=== PATIENT | female | born 1970 | race Caucasian/White ===

== ENCOUNTER 2018-02-25 11:10 | Observation (INO) | payer SELFPAY ==
[2018-02-25 11:55] LABS: #Basophils 0.1 thou/uL (0.0-0.2); #Eosinphils 0.4 thou/uL (0.0-0.7); #Lymphocytes 2.5 thou/uL (1.20-3.40); #Monocytes 0.7 thou/uL (0.11-0.59); #Neutrophils 10.7 thou/uL (1.40-6.50); %Basophils 0.4 % (0.0-1.0); %Lymphocytes 17.6 % (21.0-51.0); %Neutrophils 74.1 % (42.0-75.0); Hemoglobin 15.6 g/dL (12.0-16.0); Mean Corpuscular HGB CONC 32.6 g/dL (32.0-36.0); Mean Corpuscular Hemoglobin 29.5 pg (27.0-31.0); Mean Corpuscular Volume 90.5 fL (78.0-98.0); Mean Platelet Volume 8.9 fL (7.4-10.4); Platelet Count 251 thou/uL (130-400); RBC Distribution Width 12.5 % (11.5-14.5); Red Blood Cell (RBC) Count 5.29 mill/uL (4.20-5.40); White Blood Cell (WBC) Count 14.4 thou/uL (4.8-10.8)
[2018-02-25 12:04] LABS: ALT (SGPT) 8 U/L (8-55); AST (SGOT) 11 U/L (5-34); Albumin 3.7 g/dL (3.5-5.0); Alkaline Phosphatase 93 U/L (40-150); Anion Gap 12 mmol/L (10-20); BUN (Urea Nitrogen) 5 mg/dL (7.0-18.7); Bilirubin, Total 0.5 mg/dL (0.2-1.2); Calc. Creatinine Clearance 0 mL/min (70-130); Carbon Dioxide 20 mmol/L (22-29); Chloride 107 mmol/L (98-107); Estimated GFR-MDRD 63; Globulin 2.9 g/dL (2.4-3.5); Glucose 260 mg/dL (70-105); Potassium 4.2 mmol/L (3.5-5.1); Protein, Total 6.6 g/dL (6.0-8.3); Sodium 135 mmol/L (136-145)
[2018-02-25 12:08] LABS: CKMB 0.8 ng/mL (0-6.6)
[2018-02-25 12:18] LABS: Troponin I Less than 0.010 ng/mL (< 0.028)
[2018-02-25] MEDS ORDERED: predniSONE 20 MG TAB ONE (12:29)
[2018-02-25] MEDS ORDERED: Magnesium 2 GM/50 ML 2 GM in Premix Bag 1 BAG IVPB SCH (12:30)
[2018-02-25] MEDS ORDERED: Albuterol Sulfate 2.5 mg/3 ml Neb ONE (12:33)
--- NOTE | 2018-02-25 12:40 | RAD ---
FRONTAL VIEW CHEST: Date: 02/25/18 INDICATION: Chest pain. Progressive shortness of breath. FINDINGS: Lungs are clear. No effusion or pneumothorax. No free air beneath hemidiaphragms. Cardiac silhouette is normal in size. IMPRESSION: No focal consolidation. POS: H
[2018-02-25] MEDS ORDERED: Doxycycline 100 MG CAP PO SCH (12:45)
[2018-02-25 14:43] LABS: Base Excess-Venous -5.4 mmol/L (0 (+/- 2.5)); Bicarbonate (HCO3v) 19.7 mmol/L (1.0-85.0); CO2 Tension (PvCO2) 36.6 mmHg (41.0-51.0); Calcium, Ionized 1.08 mmol/L (1.12-1.32); Hemoglobin - Calc 14.3 g/dL (12.0-18.0); O2 Tension (PvO2) 49.8 mmHg (35.0-45.0); Potassium 3.7 mmol/L (3.4-4.7); T. Carbon Dioxide 20.9 mmol/L (1.0-85.0); vO2 Saturation-calc 82.8 % (94-98)
--- NOTE | 2018-02-25 15:08 | PDOC.FPRHP ---
- History of Present Illness Chief Complaint: SOB History of Present Illness: Ms. Pinto presents to the ED after increasing SOB for the past few days. She has moved from [facility] in the past 6 months to the area and has had increased rhinorrhea, nasal congestion, coughing and difficulty breathing. She has been unable to afford her maintenance inhaler and has been treating herself with q4hr albuterol nebs. She denies CP, fever/chills, N/V/D, calf tenderness, palpitations or syncope. ED Course: CBC/CMP, Trop, ddimer, CTA, CXR, EKG albuterol [id number], doxycycline, duonebs, prednisone - Allergies/Adverse Reactions Allergies Allergy/AdvReac Type Severity Reaction Status Date / Time Sulfa (Sulfonamide Allergy Verified 02/25/18 12:28 Antibiotics) - Home Medications Medication Instructions Recorded Confirmed Type BuPROPion XL [Wellbutrin XL] 150 mg PO DAILY 02/25/18 02/25/18 History Fluticasone Propionate [Flonase 1 spray EA NARE DAILY 02/25/18 02/25/18 History Allergy Relief] Insulin NPH Hum/Reg Insulin HM 30 unit SQ BID 02/25/18 02/25/18 History [Novolin 70-30 100 Unit/ml Vial] Lisinopril 10 mg PO DAILY 02/25/18 02/25/18 History - History PMHx: Asthma, DMII, HTN, HLD, Fibromyalgia PSHx: Tubal ligation, Cholecystectomy FHx:Mother and grandmother with emphesyma, all smokers Social:former smoker, 30 pk years - Review of Systems General: denies: fever/chills, weight/appetite/sleep changes Eyes: denies: eye pain ENT: reports: nasal congestion, rhinorrhea Respiratory: reports: cough, congestion, shortness of breath Cardiovascular: denies: chest pain, palpitation, edema Gastrointestinal: denies: nausea, vomiting, diarrhea, constipation, abdominal pain Genitourinary: reports: polyuria. denies: incontinence, dysuria Skin: denies: rashes, lesions, jaundice Musculoskeletal: reports: tenderness. denies: pain, stiffness Neurological: denies: numbness, syncope - Vital signs BP: [117/80] HR: [118] RR: [24] Tmax: [98.6] Pox: [95]% on [RA] Wt: [113kg] - Physical Exam Constitutional: NAD, well developed HEENT: normocephalic and atraumatic, grossly normal vision, grossly normal hearing Neck: supple, trachea midline Chest: no-tender to palpation, no lesions Heart: RRR, normal S1/S2, no murmurs/rubs/gallops, pulses present, no edema -Lungs: non-labored breathing, no retractions, wheezing present througout, poor air movement Abdomen: soft, non-tender, no masses/distention Musculoskeletal: normal structure, ROM grossly normal Neurological: no focal deficit, normal sensation Skin: no rash/lesions, good turgor Heme/Lymphatic: no unusual bruising or bleeding, no purpura, no petechia Psychiatric: normal mood and affect FMR H&P: Results - Labs Result Diagrams: 02/25/18 11:31 02/25/18 11:31 Lab results: WBC 14.4 thou/uL (4.8-10.8) H 02/25/18 11:31 Hgb 15.6 g/dL (12.0-16.0) 02/25/18 11:31 Hct 47.9 % (36.0-47.0) H 02/25/18 11:31 MCV 90.5 fL (78.0-98.0) 02/25/18 11:31 Plt Count 251 thou/uL (130-400) 02/25/18 11:31 Neutrophils % 74.1 % (42.0-75.0) 02/25/18 11:31 VBG pCO2 36.6 mmHg (41.0-51.0) L 02/25/18 14:37 VBG pO2 49.8 mmHg (35.0-45.0) H 02/25/18 14:37 Sodium 135 mmol/L (136-145) L 02/25/18 11:31 Potassium 4.2 mmol/L (3.5-5.1) 02/25/18 11:31 Chloride 107 mmol/L (98-107) 02/25/18 11:31 Carbon Dioxide 20 mmol/L (22-29) L 02/25/18 11:31 BUN 5 mg/dL (7.0-18.7) L 02/25/18 11:31 Creatinine 0.96 mg/dL (0.6-1.1) 02/25/18 11:31 Glucose 260 mg/dL (70-105) H 02/25/18 11:31 Calcium 9.0 mg/dL (7.8-10.44) 02/25/18 11:31 Total Bilirubin 0.5 mg/dL (0.2-1.2) 02/25/18 11:31 AST 11 U/L (5-34) 02/25/18 11:31 ALT 8 U/L (8-55) 02/25/18 11:31 Alkaline Phosphatase 93 U/L (40-150) 02/25/18 11:31 CK-MB (CK-2) 0.8 ng/mL (0-6.6) 02/25/18 11:31 Serum Total Protein 6.6 g/dL (6.0-8.3) 02/25/18 11:31 Albumin 3.7 g/dL (3.5-5.0) 02/25/18 11:31 FMR H&P: A/P - Problem List (1) Asthma exacerbation with COPD (chronic obstructive pulmonary disease) Current Visit: Yes Status: Acute Code(s): J44.1 - CHRONIC OBSTRUCTIVE PULMONARY DISEASE W (ACUTE) EXACERBATION; J45.901 - UNSPECIFIED ASTHMA WITH ( ACUTE) EXACERBATION (2) Tachycardia Current Visit: Yes Status: Acute Code(s): R00.0 - TACHYCARDIA, UNSPECIFIED (3) Leukocytosis Current Visit: Yes Status: Acute Code(s): D72.829 - ELEVATED WHITE BLOOD CELL COUNT, UNSPECIFIED (4) Diabetes mellitus type 2 in obese Current Visit: Yes Status: Acute Code(s): E11.69 - TYPE 2 DIABETES MELLITUS WITH OTHER SPECIFIED COMPLICATION; E66.9 - OBESITY, UNSPECIFIED (5) HTN (hypertension) Current Visit: Yes Status: Acute Code(s): I10 - ESSENTIAL (PRIMARY) HYPERTENSION (6) HLD (hyperlipidemia) Current Visit: Yes Status: Acute Code(s): E78.5 - HYPERLIPIDEMIA, UNSPECIFIED - Plan Asthma exacerbation with COPD - history of diagnosed asthma, consider COPD as possible diagnosis with smoking history - Duonebs q4hr, albuterol q2hr, prednisone 40mg qd, Doxycycline, O2 prn - monitor respiratory and vitals on medical floor Tachycardia - likely 2/2 increased O2 demand - CTA neg for PE Leukocytosis - possibly 2/2 atypical pna - Doxycycline to cover - order procal, AM CBC DMII - lantus 10 qam - mild SSI HTN -continue home meds HLD -continue home meds Code: FULL ppx: lovenox Disposition/LOS: treat for COPD exacerbation, monitor overnight, possible DC tomorrow FMR H&P: Upper Level - Pertinent history 47 y/o F with hx/o smoking & asthma presents for SOB/Wheezing for several weeks that has continued to worsen. Associated cough, wheezing, SOB, chest tightness. Does not complain of exertional chest pain, dysuria, abdominal pain, bowel changes. S/p 10mg of albuterol nebs in ED with improved respiratory distress, but continued wheezing. She is on RA, at 96% O2 and feels better than when she presented. Also given Prednisone, Doxycline, Magnesuim in ED. - Plan Date/Time: 02/25/18 [id number] I, Alf Dunbar, have evaluated this patient and agree with findings/plan as outlined by development intern resident. Pertinent changes/additions are listed here. 1. Acute Asthma Exacerbation - Pt has long history of smoking as well and likely a component of obstructive disease as well. Will continue scheduled and PRN nebs, continue Prednisone, and O2 as need to maintain sats >92%. Consider Singulair as she recently moved to the area and this worsened her asthma. 2. Possible Atypical PNA - Seen on CTA. Will continue Doxycycline and monitor for signs of infection and her respiratory status. 3. Leukocytosis: Possibly related to #2, but could be reactive as well. Will trend and order procal. 4. DM2: On 35u 70/30u insulin daily. Will give 10u Lantus BID with SSI and continue to monitor. 5. Depression: On Wellbutrin. Stable. 6. HTN: Resume home Lisinopril Attending Addendum - Attending Addendum Date/Time: 02/25/181919 I personally evaluated the patient and discussed the management with Dr. Wallace. I agree with the History, Examination, Assessment and Plan documented above with any addition or exceptions noted below. I suspect after 40 years of smoking an underlying COPD component. We are essentailly traing her for COPD exascerbation, asthma exascerbation, and Right middle lobe pneumonia.
[2018-02-25] MEDS ORDERED: ISOVUE-370 76%-LOCM 1 ML ONE (15:12)
--- NOTE | 2018-02-25 15:16 | CT ---
CTA CHEST WITH CONTRAST WITH 3D VOLUME RENDERING: Date: 02/25/18 INDICATION: Chest pain with elevated D-Dimer. FINDINGS: There is no large, central filling defect of pulmonary trunk or main pulmonary arteries. There is a g eneralized diminished density of the contrast bolus, which does limit sensitivity for detection of PE and does preclude evaluation at the segmental and subsegmental pulmonary trunk branch levels. There is ground-glass multifocal opacification of the pulmonary parenchyma bilaterally, more notable on the left. No effusion or pneumothorax. There are borderline size thoracic lymph nodes, of indeterminate etiology. No acute pathology is seen within the imaged upper abdomen. The regional skeletal structure s are intact. IMPRESSION: 1. No definite large central pulmonary embolus, within limitations. 2. Multifocal abnormal ground-glass opacities bilaterally. This could be on the basis of an atypical infectious/inflammatory process. Alternatively, edema or alveolar hemorrhage are additional consider ations. Recommend clinical correlation. Radiographic imaging follow-up may also prove useful as indic ated. POS: ILYA
[2018-02-25 15:57] LABS: Troponin I Less than 0.010 ng/mL (< 0.028)
[2018-02-25] MEDS ORDERED: Acetaminophen 325 MG TAB PO PRN ×2 (16:27→16:45)
[2018-02-25] MEDS ORDERED: Dextrose 5% in Water 1,000 ML IV PRN (16:45)
[2018-02-25] MEDS ORDERED: Albuterol Sulfate 2.5 mg/3 ml Neb NEB PRN (16:45)
[2018-02-25] MEDS ORDERED: Dextrose 50% Abboject 50 ML SYRINGE SLOW IVP PRN (16:45)
[2018-02-25 16:59] VITALS: BMI 43.0
[2018-02-25] MEDS: HumaLOG 300 UNITS/3 ML VIAL SC PRN (17:37)
[2018-02-25] MEDS: Doxycycline 100 MG CAP PO SCH (20:01)
[2018-02-25] MEDS: Insulin NPH/Reg Insulin Hm 300 UNITS/3 ML VIAL SC SCH (21:42)
[2018-02-25] MEDS: Melatonin 3 MG TAB PO PRN (21:43)
[2018-02-26] MEDS: HumaLOG 300 UNITS/3 ML VIAL SC PRN ×4 (01:59→21:11)
[2018-02-26 02:11] LABS: #Lymphocytes 1.4 thou/uL (1.20-3.40); #Monocytes 0.8 thou/uL (0.11-0.59); #Neutrophils 12.1 thou/uL (1.40-6.50); %Basophils 0.1 % (0.0-1.0); %Eosinophils 0.3 % (0.0-10.0); %Lymphocytes 9.7 % (21.0-51.0); %Monocytes 5.3 % (0.0-10.0); %Neutrophils 84.7 % (42.0-75.0); Hemoglobin 13.7 g/dL (12.0-16.0); Mean Corpuscular HGB CONC 33.8 g/dL (32.0-36.0); Mean Corpuscular Hemoglobin 30.7 pg (27.0-31.0); Mean Platelet Volume 8.6 fL (7.4-10.4); Platelet Count 243 thou/uL (130-400); RBC Distribution Width 12.4 % (11.5-14.5); Red Blood Cell (RBC) Count 4.47 mill/uL (4.20-5.40); White Blood Cell (WBC) Count 14.3 thou/uL (4.8-10.8)
[2018-02-26 02:27] LABS: Anion Gap 10 mmol/L (10-20); BUN (Urea Nitrogen) 13 mg/dL (7.0-18.7); Calc. Creatinine Clearance 124 mL/min (70-130); Calcium 8.5 mg/dL (7.8-10.44); Carbon Dioxide 21 mmol/L (22-29); Chloride 106 mmol/L (98-107); Estimated GFR-MDRD 57; Glucose 321 mg/dL (70-105); Potassium 4.4 mmol/L (3.5-5.1); Sodium 133 mmol/L (136-145)
[2018-02-26] MEDS ORDERED: guaiFENesin ER 600 MG TAB PO SCH (05:45)
--- NOTE | 2018-02-26 07:54 | PDOC.FM ---
- Subjective Subjective: Pt c/o congestion overnight and given Mucinex. States she feel better, but is still wheezing. Is getting Duo-nebs treatments. - Objective Vital Signs & Weight: Vital Signs (12 hours) Temp Pulse Resp BP BP Pulse Ox 02/26/18 06:56 121 H 20 99 02/26/18 05:21 20 02/26/18 04:53 97.0 F L 122 H 26 H 133/93 H 93 L 02/26/18 01:53 98.6 F 106 H 18 115/72 93 L 02/25/18 21:28 105 H 18 95 Weight Weight 114.532 kg I&O: 02/25/18 02/26/18 02/27/18 06:59 06:59 06:59 Intake Total 1250 Output Total 1200 400 Balance 50 -400 Result Diagrams: 02/26/18 02:05 02/26/18 02:05 <Alf Dunbar - Last Filed: 02/26/18 09:48> - Objective Vital Signs & Weight: Vital Signs (12 hours) Temp Pulse Resp BP BP Pulse Ox 02/26/18 10:15 94 16 95 02/26/18 07:45 97.9 F 111 H 20 132/72 95 02/26/18 06:56 121 H 20 99 02/26/18 05:21 20 02/26/18 04:53 97.0 F L 122 H 26 H 133/93 H 93 L 02/26/18 01:53 98.6 F 106 H 18 115/72 93 L Weight Weight 114.532 kg I&O: 02/25/18 02/26/18 02/27/18 06:59 06:59 06:59 Intake Total 1250 Output Total 1200 400 Balance 50 -400 Result Diagrams: 02/26/18 02:05 02/26/18 02:05 <Priscila Bender - Last Filed: 02/26/18 10:30> Phys Exam - Physical Examination HEENT: PERRLA, moist MMs, sclera anicteric Neck: no nodes, no JVD Respiratory: no rales, no rhonchi diffuse exp wheezing b/l, Cardiovascular: RRR, no significant murmur, no rub Gastrointestinal: soft, non-tender, no distention obese Musculoskeletal: no edema Neurological: non-focal, normal sensation Lymphatic: no nodes Psychiatric: normal affect, A&O x 3 Skin: no rash, normal turgor, cap refill <2 seconds <Alf Dunbar - Last Filed: 02/26/18 09:48> Dx/Plan (1) Asthma exacerbation with COPD (chronic obstructive pulmonary disease) Code(s): J44.1 - CHRONIC OBSTRUCTIVE PULMONARY DISEASE W (ACUTE) EXACERBATION; J45.901 - UNSPECIFIED ASTHMA WITH (ACUTE) EXACERBATION Status: Acute (2) Diabetes mellitus type 2 in obese Code(s): E11.69 - TYPE 2 DIABETES MELLITUS WITH OTHER SPECIFIED COMPLICATION; E66.9 - OBESITY, UNSPECIFIED Status: Acute (3) HLD (hyperlipidemia) Code(s): E78.5 - HYPERLIPIDEMIA, UNSPECIFIED Status: Acute (4) HTN (hypertension) Code(s): I10 - ESSENTIAL (PRIMARY) HYPERTENSION Status: Acute (5) Leukocytosis Code(s): D72.829 - ELEVATED WHITE BLOOD CELL COUNT, UNSPECIFIED Status: Acute (6) Tachycardia Code(s): R00.0 - TACHYCARDIA, UNSPECIFIED Status: Acute - Plan Plan: 1. Acute Asthma Exacerbation - On PRN nebs, Prednisone, and not requiring O2 support overnight. 2. Possible Atypical PNA - Seen on CTA. Will continue Doxycycline and monitor for signs of infection and her respiratory status. 3. Leukocytosis: Possibly related to #2, but could be reactive as well. Will trend and order procal. 4. DM2: Resume 35u 70/30u insulin daily with SSI and monitor BG 5. Depression: On Wellbutrin. Stable. 6. HTN: Resume home Lisinopril DISPO: anticipate dischrage tomorrow DVT ppx: Lovenox <Alf Dunbar - Last Filed: 02/26/18 09:48> Attending Addendum - Attending Addendum Date/Time: 02/26/18 1018 I personally evaluated the patient and discussed the management with Dr. Dunbar I agree with the History, Examination, Assessment and Plan documented above with any addition or exceptions noted below- Patinet feeling; still have some wheezng. Continue nebs, prednisone. 2) DM- home meds restarted; continue to monitor accuchecks. <Priscila Bender - Last Filed: 02/26/18 10:30>
[2018-02-26] MEDS: Fluticasone Propionate Nasal Spray 16 gm Bottle NASAL SCH ×2 (08:39→22:47)
[2018-02-26] MEDS: predniSONE 20 MG TAB PO SCH (08:40)
[2018-02-26] MEDS: Lisinopril 10 MG TAB PO SCH (08:40)
[2018-02-26] MEDS: Enoxaparin Sodium 30 MG/0.3 ML SYRINGE SC SCH (08:40)
[2018-02-26] MEDS: Bupropion 150 MG XL TAB PO SCH (08:40)
[2018-02-26] MEDS: Doxycycline 100 MG CAP PO SCH ×2 (08:41→21:06)
[2018-02-26] MEDS: Insulin NPH/Reg Insulin Hm 300 UNITS/3 ML VIAL SC SCH ×2 (08:41→21:12)
[2018-02-26] MEDS ORDERED: Insulin Glargine 10 UNITS in Pre-Filled Syringe 1 EACH SC SCH (09:00)
[2018-02-26] MEDS: guaiFENesin ER 600 MG TAB PO SCH (21:06)
[2018-02-26] MEDS ORDERED: Magnesium 2 GM/50 ML 2 GM in Premix Bag 1 BAG IVPB SCH (22:30)
[2018-02-26] MEDS: Melatonin 3 MG TAB PO PRN (22:47)
[2018-02-27] MEDS: HumaLOG 300 UNITS/3 ML VIAL SC PRN (05:30)
--- NOTE | 2018-02-27 05:57 | PDOC.FM ---
- Subjective Subjective: Pt doing well. Respiratory status much improved. - Objective Vital Signs & Weight: Vital Signs (12 hours) Temp Pulse Resp BP Pulse Ox 02/27/18 03:45 98.6 F 90 18 119/59 L 96 02/27/18 02:46 100 18 98 02/26/18 21:34 105 H 18 92 L 02/26/18 20:04 97.8 F 103 H 14 129/62 96 02/26/18 18:29 102 H 18 97 Weight Weight 114.532 kg I&O: 02/25/18 02/26/18 02/27/18 06:59 06:59 06:59 Intake Total 1250 960 Output Total 1200 400 Balance 50 560 Result Diagrams: 02/26/18 02:05 02/26/18 02:05 Phys Exam - Physical Examination Constitutional: NAD HEENT: PERRLA, moist MMs, sclera anicteric Neck: no nodes, no JVD, supple Respiratory: no rales, no rhonchi, wheezing present Cardiovascular: RRR, no significant murmur Gastrointestinal: soft, non-tender, no distention obese Musculoskeletal: no edema, pulses present Neurological: non-focal, normal sensation Psychiatric: normal affect, A&O x 3 Skin: no rash, normal turgor Dx/Plan (1) Asthma exacerbation with COPD (chronic obstructive pulmonary disease) Code(s): J44.1 - CHRONIC OBSTRUCTIVE PULMONARY DISEASE W (ACUTE) EXACERBATION; J45.901 - UNSPECIFIED ASTHMA WITH (ACUTE) EXACERBATION Status: Acute (2) Diabetes mellitus type 2 in obese Code(s): E11.69 - TYPE 2 DIABETES MELLITUS WITH OTHER SPECIFIED COMPLICATION; E66.9 - OBESITY, UNSPECIFIED Status: Acute (3) HLD (hyperlipidemia) Code(s): E78.5 - HYPERLIPIDEMIA, UNSPECIFIED Status: Acute (4) HTN (hypertension) Code(s): I10 - ESSENTIAL (PRIMARY) HYPERTENSION Status: Acute (5) Leukocytosis Code(s): D72.829 - ELEVATED WHITE BLOOD CELL COUNT, UNSPECIFIED Status: Acute (6) Tachycardia Code(s): R00.0 - TACHYCARDIA, UNSPECIFIED Status: Resolved - Plan Plan: 1. Acute Asthma Exacerbation - On PRN nebs, Prednisone, and Spireva. >95% on RA. Much improved 2. Possible Atypical PNA - Seen on CTA. Will continue Doxycycline outpatient 3. Leukocytosis: stable. Possibly related to #2, liklely reactive. Procal negative 4. DM2: BG have been elevated. On 35u 70/30u insulin daily with SSI and monitor BG 5. Depression: On Wellbutrin. Stable. 6. HTN: Resume home Lisinopril DISPO: anticipate d/c today.
[2018-02-27] MEDS ORDERED: Mometasone/Formoterol 120 PUFF INHALER INH SCH ×2 (06:30)
[2018-02-27] MEDS ORDERED: Insulin NPH/Reg Insulin Hm 300 UNITS/3 ML VIAL SC SCH (08:00)
[2018-02-27] MEDS: Bupropion 150 MG XL TAB PO SCH (08:54)
[2018-02-27] MEDS: Doxycycline 100 MG CAP PO SCH (08:54)
[2018-02-27] MEDS: Fluticasone Propionate Nasal Spray 16 gm Bottle NASAL SCH (08:54)
[2018-02-27] MEDS: Lisinopril 10 MG TAB PO SCH (08:55)
[2018-02-27] MEDS: predniSONE 20 MG TAB PO SCH (08:55)
[2018-02-27] MEDS: guaiFENesin ER 600 MG TAB PO SCH (08:55)
[2018-02-27] MEDS: Enoxaparin Sodium 30 MG/0.3 ML SYRINGE SC SCH (08:55)
[2018-02-27 12:23] VITALS: BP 102/53; TEMP 98.2
--- NOTE | 2018-02-27 14:39 | ADD-PRG ---
DATE OF SERVICE: 02/27/2018 This is an addendum to the note of Dr. Alf Dunbar. SUBJECTIVE: Ms. Pinto is a pleasant 47-year-old obese white female who was admitted with some mild re spiratory distress. She has had asthma since the age of 6 and until recently was a heavy smoker with approximately 25-30 pack year history. 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 In the event, she feels much better this morning. She really likely needs to be on a long-acting muscarinic, an in haled corticosteroid and a long-acting beta agonist as well as her rescue inhaler and/or nebulizer wi th albuterol. We are asking case management to help us out paying for these. Otherwise, she is read y for discharge.
--- NOTE | 2018-02-28 19:10 | DIS-2 ---
DATE OF ADMISSION: 02/25/2018 DATE OF DISCHARGE: 02/27/2018 RESIDENT: Alf Dunbar DO ADMITTING ATTENDING: Dr. Priscila Bender DISCHARGE ATTENDING: Dr. Matt Gómez MD. CONSULTATIONS: None. PROCEDURES: None. PRIMARY DIAGNOSIS: Acute asthma exacerbation. SECONDARY DIAGNOSES: 1. Chronic obstructive pulmonary disease. 2. Diabetes type 2. 3. Obesity. DISCHARGE MEDICATIONS: ProAir inhaler 2 puffs q.4 hours as needed, lisinopril 10 mg 1 tab p.o. daily , Wellbutrin 150 mg p.o. daily, insulin 70/30 NPH 35 units subcu b.i.d., prednisone 40 mg for 4 days and albuterol 2.5 mg nebulizer q.4 h. as needed. DISCONTINUED MEDICATIONS: None. HOSPITAL COURSE: A 47-year-old female admitted for an acute asthma/COPD exacerbation. She was treat ed with steroids which will be continued outpatient. She was also given nebulizers, which will also be continued outpatient. Her blood glucoses were controlled. Of note, she does not have insurance a nd cannot afford outpatient inhalers, so we did prescribe a ProAir and set her up with a medication a ssistance program to where she could at least have a rescue inhaler. She would benefit from addition al LABA or inhaled corticosteroid as well. Her respiratory status did improve with these medications . DISPOSITION: Stable. DISCHARGE INSTRUCTIONS: 1. Location: Home. 2. Diet: Regular. 3. Activity: As tolerated. 4. Followup: At [facility] within 1 week.
== END 2018-02-27 17:04 | disposition home or self-care (01) ==
LOC: ERS 11:10 → 2SW 16:40
PROVIDERS: ADMIT Family Medicine; ATTEND Family Medicine
DX: J44.1 Chronic obstructive pulmonary disease with (acute) exacerbation (principal); J45.901 Unspecified asthma with (acute) exacerbation; E11.9 Type 2 diabetes mellitus without complications; E78.5 Hyperlipidemia, unspecified; M79.7 Fibromyalgia; F32.9 Major depressive disorder, single episode, unspecified; D72.829 Elevated white blood cell count, unspecified; E66.9 Obesity, unspecified; Z68.41 Body mass index [BMI] 40.0-44.9, adult; Z87.891 Personal history of nicotine dependence; Z79.4 Long term (current) use of insulin; Z79.899 Other long term (current) drug therapy; Z88.2 Allergy status to sulfonamides
CPT/HCPCS: 36415; 36416; 71045; 71275; 80048; 80053; 82330; 82553; 82803; 84145; 84484; 85025; 85379; 90471; 90686; 90732; 93005; 94640; 94644; 96365; 96367; 96372; G0008; G0009; G0378; J1650; J7506; J7611; J7620

== ENCOUNTER 2018-10-10 23:47 | Inpatient (IN) | payer SELFPAY ==
[2018-10-11] MEDS ORDERED: Lorazepam 2 MG/ML VIAL ONE ×2 (00:08→00:26)
[2018-10-11] MEDS ORDERED: methylPREDNISolone Sod Succ/PF 125 MG/2 ML VIAL ONE (00:08)
[2018-10-11] MEDS ORDERED: Metoclopramide HCl 10 MG/2 ML VIAL ONE (00:26)
[2018-10-11 00:29] LABS: #Basophils 0.1 thou/uL (0.0-0.2); #Eosinphils 0.1 thou/uL (0.0-0.7); #Monocytes 0.5 thou/uL (0.11-0.59); #Neutrophils 10.1 thou/uL (1.40-6.50); %Basophils 0.7 % (0.0-1.0); %Eosinophils 0.4 % (0.0-10.0); %Lymphocytes 31.5 % (21.0-51.0); %Monocytes 3.4 % (0.0-10.0); %Neutrophils 63.9 % (42.0-75.0); Hemoglobin 15.9 g/dL (12.0-16.0); Mean Corpuscular HGB CONC 33.4 g/dL (32.0-36.0); Mean Corpuscular Hemoglobin 30.3 pg (27.0-31.0); Mean Corpuscular Volume 90.8 fL (78.0-98.0); Mean Platelet Volume 9.2 fL (7.4-10.4); Platelet Count 364 thou/uL (130-400); RBC Distribution Width 12.6 % (11.5-14.5); Red Blood Cell (RBC) Count 5.25 mill/uL (4.20-5.40); White Blood Cell (WBC) Count 15.8 thou/uL (4.8-10.8)
[2018-10-11 00:39] LABS: BHCG - Serum Negative (NEGATIVE); Pregs Control Background? CLEAR/WHITE (CLR/WHITE); Pregs Control Bar Appear? YES (CONTROL BAR)
[2018-10-11 00:48] LABS: ALT (SGPT) 12 U/L (8-55); AST (SGOT) 11 U/L (5-34); Albumin 3.4 g/dL (3.5-5.0); Alkaline Phosphatase 107 U/L (40-150); Anion Gap 16 mmol/L (10-20); BUN (Urea Nitrogen) 12 mg/dL (7.0-18.7); Bilirubin, Total 0.3 mg/dL (0.2-1.2); Calc. Creatinine Clearance 0 mL/min (70-130); Calcium 9.1 mg/dL (7.8-10.44); Carbon Dioxide 20 mmol/L (22-29); Chloride 103 mmol/L (98-107); Estimated GFR-MDRD 47; Globulin 2.8 g/dL (2.4-3.5); Glucose 513 mg/dL (70-105); Potassium 3.7 mmol/L (3.5-5.1); Protein, Total 6.2 g/dL (6.0-8.3); Sodium 135 mmol/L (136-145)
[2018-10-11] MEDS ORDERED: Morphine 4 MG/ML VIAL ONE (03:18)
[2018-10-11] MEDS ORDERED: Ondansetron PF 4 MG/2 ML Vial ONE (03:18)
[2018-10-11] MEDS ORDERED: Enoxaparin Sodium 60 MG/0.6 ML SYRINGE ONE (03:50)
[2018-10-11] MEDS ORDERED: Acetaminophen 325 MG TAB PO PRN (04:54)
[2018-10-11] MEDS ORDERED: Ondansetron PF 4 MG/2 ML Vial IVP PRN (04:54)
[2018-10-11] MEDS ORDERED: Dextrose 50% Abboject 50 ML SYRINGE SLOW IVP PRN (04:56)
[2018-10-11] MEDS ORDERED: Dextrose 5% in Water 1,000 ML IV PRN (04:56)
[2018-10-11] MEDS ORDERED: Insulin Regular 300 UNITS/3 ML VIAL ONE ×2 (04:57→04:59)
[2018-10-11] MEDS ORDERED: Morphine 2 MG/ML SYRINGE ONE (04:57)
--- NOTE | 2018-10-11 05:53 | HP ---
PRIMARY CARE DOCTOR: The patient goes to [facility]. CODE STATUS: Full code. TIME OF EVALUATION: 4:35 a.m. CHIEF COMPLAINT: Abdominal pain and shortness of breath. HISTORY OF PRESENT ILLNESS: This is a 47-year-old female patient with past medical history of morbidly obese, diabetes, hyperlipidemia, hypertension, asthma, also family history of thromboembolic disorder. The patient came to the hospital after having a severe abdominal pain associated with shortness of breath, associated with diaphoresis. The patient was sleeping and all of the sudden started with the severe pain. The patient is a diabetic, has not been taking any insulin. She cannot associate the event with any other problems. Symptoms are severe. CT angio was done. The patient was shown to have multiple emboli in the infrarenal aortic area and also having spleen and renal infarctions. It seems that the source for the thrombus is the heart. The patient has been started on full anticoagulation. REVIEW OF SYSTEMS: CONSTITUTIONAL: No fever or chills. The patient reported generalized weakness. RESPIRATORY: No cough. The patient had shortness of breath. No sputum production. CARDIOVASCULAR: No chest pain or palpitation. GASTROINTESTINAL: The patient has had nausea and vomiting. No diarrhea or abdominal pain. 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 GENITOURINARY: No burning on urination. EXTREMITIES: No leg swelling. All other systems were reviewed and negative except for the findings mentioned above. PAST MEDICAL HISTORY: As mentioned in the HPI. FAMILY HISTORY: Reviewed and non contributory to current presentation SURGICAL HISTORY: Tubal ligation, cholecystectomy. PSYCHIATRIC HISTORY: Depression, anxiety. No history of suicidal or homicidal ideation. SOCIAL HISTORY: The patient abuses marijuana, smokes cigarettes half a pack per day. KNOWN ALLERGIES: Sulfa. REPORTED MEDICATIONS: 1. Lisinopril. 2. Humulin 70/30. 3. Symbicort. PHYSICAL EXAMINATION: VITAL SIGNS: On presentation, blood pressure 103/87 with heart rate 123, respiratory rate was 16, temperature 97.6, pain was 10/10, and 97% on non-rebreather. GENERAL APPEARANCE: The patient is alert, oriented, not in acute distress. HEENT: Eyes; normal conjunctivae. Moist oral mucosa. Anicteric. No JVD. RESPIRATORY: Bilateral air entry. No rales. No wheezes. Symmetric expansion. CARDIOVASCULAR: The patient is tachycardic. Regular rhythm. No murmurs. No gallop. No edema. ABDOMEN: Soft. Normal bowel sounds. MUSCULOSKELETAL: Baseline range of motion and strength. SKIN: Warm, intact. No pallor. No rash. No redness. Peripheral pulses are present. Capillary refill seems to intact. NEURO: No evidence of any new focal weakness. Cranial nerves seems to be intact. PSYCH: The patient is in good mood. No anxiety. Optimal judgment. DIAGNOSTIC DATA: EKG was reviewed. The patient has sinus tachycardia at the rate of 125 with TX 150, QRS 78, and QT corrected 450. The CT abdomen and pelvis was reviewed. 1. The patient has infarction involving approximately 30% of the spleen and small peripheral infarcts in the kidneys, hypodensity throughout the infrarenal abdominal aorta, most consistent with thromboemboli. Source of emboli not identified on the CT from the heart. This report contains findings that may be critical to the patient's care. 2. Questionable bowel wall thickening in the right lower quadrant. Recommend close followup. Possible early infarction given findings of thromboembolic disease. LABORATORY DATA: Labs were reviewed. The patient has white count of 15.8, MCV 90, hemoglobin 15.9, platelet count 364. Chemistry; sodium 135, potassium 3.7, chloride 103, carbon dioxide 20, anion gap 16, BUN 12, creatinine 1.24, GFR 47, glucose 513, calcium 9.1. Total bilirubin 0.3, AST 11, ALT 12, alkaline phosphatase 107. Troponin was negative. Beta-natriuretic peptide 15.3, albumin 3.4. ASSESSMENT AND PLAN: The patient will be placed in the hospital with following medical problems. 1. 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 The patient has been started on Lovenox that we will continue for now. She may need to be on chronic anticoagulation, specifically having the history of the mother having the clot disorder. We will treat abdominal pain symptomatically. 2. Uncontrolled diabetes with blood sugar of 113. The patient has been started on sliding scale for optimal control. We will reconcile home medications. Low- carb diet is advised. 3. Hyponatremia, sodium 135, this is minimal. No need for any acute intervention at this point. We will monitor sodium level. 4. Morbid obesity. Advised to lose weight. 5. Leukocytosis. No source for infection. This may be due to acute distress, need to be monitored and treated accordingly. 6. Hyperlipidemia. Low-cholesterol diet is advised. Control diabetes. 7. Controlled hypertension. Reconcile home medications. We will monitor. Job ID: [id number] [id number]
[2018-10-11 06:46] LABS: Glucose Accucheck Confirmation 620 mg/dl (70-105)
[2018-10-11] MEDS ORDERED: HumaLOG 300 UNITS/3 ML VIAL SC SCH (07:15)
--- NOTE | 2018-10-11 07:44 | CT ---
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 EMS reports PT was having SOB, became red and diaphoretic, and had an overwhelming sense of doom. PT reports abd pain associated w/ nausea. EMS states PT took a zyrtec when sx's started. PT admits to smoking marijuana tonight. Dstick en route to ED was 500, PT states she has been out of insulin x3 weeks. TECHNIQUE: Imaging protocol: Axial computed tomography images of the abdomen and pelvis with intravenous contrast. Coronal reformatted images were created and reviewed. COMPARISON: No relevant prior studies available. FINDINGS: Lungs: No consolidations in the lung bases. ABDOMEN: Liver: No mass. Gallbladder and bile ducts: Surgical changes of cholecystectomy. No ductal dilation. Pancreas: No mass or ductal dilation. Spleen: Wedge-shaped hypodensity in the spleen covering approximately one third. Adrenals: No mass. Kidneys and ureters: Several small wedge-shaped cortical hypodensities of the left kidney. Stomach and bowel: Possible wall thickening of a loop of small bowel in the right lower quadrant. No bowel obstruction. Appendix: No evidence of appendicitis. PELVIS: Bladder: Normal. Reproductive: Normal. ABDOMEN and PELVIS: Intraperitoneal space: Small amount of free fluid in the pelvis. Bones/joints: No suspicious bone lesions. Soft tissues: Large fat containing umbilical hernia. Vasculature: Hypodensities in the infrarenal abdominal aorta suspicious for thromboembolic disease. Lymph nodes: No lymphadenopathy. IMPRESSION: 1. Infarction involving approximately 30% of the spleen and small peripheral infarcts of the left kid chicho. Hypodensities throughout the infrarenal abdominal aorta most consistent with thromboemboli. Source of emboli not identified on this CT, though commonly from the heart. THIS REPORT CONTAINS FINDINGS THAT MAY BE CRITICAL TO PATIENT CARE. Above findings were verbally communicated via telephone conference with Dr. Ba at 3:09 AM CDT on 10/11/2018. The findings were acknowledged and understood. 2. Questionable bowel wall thickening in the right lower quadrant. Recommend close followup for possible early infarction given findings of thromboembolic disease. Thank you for allowing us to participate in the care of your patient. Dictated and Authenticated by: Lynn Laboy MD 10/11/2018 3:19 AM Central Time ([place] & [place]) FINAL REPORT EMERGENCY AFTER HOURS CT ABDOMEN AND PELVIS WITH IV CONTRAST: FINDINGS/IMPRESSION: I agree with report by Dr. Lynn Laboy of [facility]. Transcribed Date/Time: 10/11/2018 8:16 AM
--- NOTE | 2018-10-11 08:30 | RAD ---
SINGLE VIEW OF THE CHEST: COMPARISON: 02/25/2018. HISTORY: Shortness of breath and dyspnea. FINDINGS: Single view of the chest shows a normal sized cardiomediastinal silhouette. There is no evidence of c onsolidation, mass, or pleural effusion. The bones are unremarkable. IMPRESSION: No evidence of acute cardiopulmonary disease. POS: [facility]
[2018-10-11] MEDS: HumaLOG 300 UNITS/3 ML VIAL SC PRN ×3 (09:36→19:03)
[2018-10-11] MEDS ORDERED: ISOVUE-370 76%-LOCM 1 ML ONE (11:20)
[2018-10-11] MEDS: Acetaminophen/Codeine 30-300mg Tablet PO SCH ×2 (13:27→18:36)
[2018-10-11] MEDS: Ondansetron ODT 4 MG TAB PO PRN (13:29)
--- NOTE | 2018-10-11 13:57 | ULT ---
EXAM: Right lower extremity venous Doppler US HISTORY: Right lower extremity edema and pain FINDINGS: Grayscale, color-flow, Doppler evaluation, spectral analysis of the right lower extremity venous stru ctures is performed with 2-D imaging. The left common femoral, superficial femoral, popliteal, posterior tibial, proximal greater saphenous and profunda femoral veins are imaged. There is normal luminal compressibility, flow, and augmentation the visualized deep venous structures of the right lower extremity. IMPRESSION: No evidence of a deep vein thrombosis in the right lower extremity.
[2018-10-11] MEDS: traMADol HCl 50 MG TAB PO PRN ×2 (15:26→20:52)
[2018-10-11] MEDS: Enoxaparin Sodium 120 MG/0.8 ML SYRINGE SC SCH (15:27)
[2018-10-11] MEDS ORDERED: HumaLOG 300 UNITS/3 ML VIAL SC PRN (17:59)
[2018-10-11] MEDS ORDERED: PROVENTIL INHALER 6.7 G (200 INHALATIONS) INH PRN (18:00)
[2018-10-11] MEDS: Budesonide 0.25 MG/2 ML NEB NEB SCH (18:41)
--- NOTE | 2018-10-11 20:43 | RAD ---
RIGHT FOOT: 10/11/18 Three views. HISTORY: Foot pain. Enthesophytes from the plantar calcaneus. Tarsals unremarkable. Metatarsals and phalanges unremarkabl e. MTP and IP joints unremarkable. IMPRESSION: Small plantar enthesophyte. Right foot otherwise unremarkable. POS: [facility]
[2018-10-11] MEDS: HumuLIN 70/30 (300 UNITS/3 ML VIAL) SC SCH (20:50)
[2018-10-12] MEDS: Acetaminophen/Codeine 30-300mg Tablet PO SCH ×4 (00:29→17:57)
[2018-10-12] MEDS: Enoxaparin Sodium 120 MG/0.8 ML SYRINGE SC SCH ×2 (03:42→15:17)
[2018-10-12 05:08] LABS: #Basophils 0.1 thou/uL (0.0-0.2); #Eosinphils 0.1 thou/uL (0.0-0.7); #Lymphocytes 2.3 thou/uL (1.20-3.40); #Monocytes 1.1 thou/uL (0.11-0.59); %Basophils 0.5 % (0.0-1.0); %Eosinophils 0.7 % (0.0-10.0); %Lymphocytes 12.2 % (21.0-51.0); %Neutrophils 80.7 % (42.0-75.0); Hemoglobin 13.1 g/dL (12.0-16.0); Mean Corpuscular HGB CONC 32.7 g/dL (32.0-36.0); Mean Corpuscular Hemoglobin 29.8 pg (27.0-31.0); Mean Corpuscular Volume 91.4 fL (78.0-98.0); Mean Platelet Volume 8.5 fL (7.4-10.4); Platelet Count 217 thou/uL (130-400); RBC Distribution Width 12.5 % (11.5-14.5); Red Blood Cell (RBC) Count 4.38 mill/uL (4.20-5.40); White Blood Cell (WBC) Count 18.6 thou/uL (4.8-10.8)
[2018-10-12 05:27] LABS: Anion Gap 11 mmol/L (10-20); BUN (Urea Nitrogen) 14 mg/dL (7.0-18.7); Calc. Creatinine Clearance 179 mL/min (70-130); Calcium 8.6 mg/dL (7.8-10.44); Carbon Dioxide 23 mmol/L (22-29); Chloride 107 mmol/L (98-107); Estimated GFR-MDRD 82; Glucose 83 mg/dL (70-105); Potassium 4.1 mmol/L (3.5-5.1); Sodium 137 mmol/L (136-145)
[2018-10-12] MEDS: Budesonide 0.25 MG/2 ML NEB NEB SCH ×2 (07:37→18:58)
[2018-10-12] MEDS: HumuLIN 70/30 (300 UNITS/3 ML VIAL) SC SCH ×2 (09:52→21:48)
[2018-10-12] MEDS: Lisinopril 10 MG TAB PO SCH (09:52)
[2018-10-12] MEDS: Loratadine 10 MG TAB PO SCH (09:52)
[2018-10-12] MEDS: Fluticasone Propionate Nasal Spray 16 gm Bottle NASAL SCH (11:22)
[2018-10-12] MEDS: traMADol HCl 50 MG TAB PO PRN (11:22)
[2018-10-12] MEDS: HumaLOG 300 UNITS/3 ML VIAL SC PRN (11:24)
[2018-10-12 11:40] LABS: PTT 40.9 SEC (22.9-36.1); Prothrombin Time 13.6 SEC (12.0-14.7)
[2018-10-12 11:42] LABS: D-Dimer Test 3.86 *mcg/mL (0.27-0.43)
[2018-10-12 11:58] LABS: HEX PHOS LA Tube 1 59.8 SEC; HEX PHOS LA Tube 2 49.2 SEC; Hexagonal Phospholipid Neut 10.6 SEC (0-8.0)
[2018-10-12] MEDS: ceFAZolin 1 GM/D5W 1 GM in Premix Bag 1 BAG IVPB SCH ×2 (13:29→21:47)
[2018-10-12 15:06] LABS: DRVVT Confirm 33.2; DRVVT Ratio 0.9 Ratio (1.2 or Less)
[2018-10-12] MEDS: Ondansetron ODT 4 MG TAB PO PRN (15:19)
--- NOTE | 2018-10-12 18:15 | PDOC.PN ---
- Subjective Encounter Start Date: 10/12/18 Encounter Start Time: 09:40 Pt seen for followup re: splenic infarct. Pt c/o pain and erythema right foot. - Objective Resuscitation Status - Order Detail: 10/11/18 04:54 Resuscitation Status Routine Resuscitation Status: FULL: Full Resuscitation MAR Reviewed: Yes Vital Signs & Weight: Vital Signs (12 hours) Temp Pulse Resp BP Pulse Ox 10/12/18 15:14 97.6 F 59 L 18 127/60 95 10/12/18 11:18 97.7 F 65 17 138/73 93 L 10/12/18 07:45 97.7 F 68 18 141/72 H 96 10/12/18 07:37 70 16 94 L Weight Weight 265 lb 8 oz I&O: 10/11/18 10/12/18 10/13/18 06:59 06:59 06:59 Intake Total 2160 Output Total 500 Balance 1660 Result Diagrams: 10/12/18 04:55 10/12/18 04:55 Additional Labs: Accuchecks 10/12/18 10/12/18 10/12/18 16:21 10:30 05:22 POC Glucose 133 H 248 H 100 10/11/18 20:23 POC Glucose 450 H EKG Reviewed by me: Yes (Tele: NSR) Phys Exam - Physical Examination Morbid obesity HEENT: moist MMs, sclera anicteric, oral pharynx no lesions, 2+ tonsils Neck: no nodes, no JVD, supple, full ROM Respiratory: clear to auscultation bilateral Cardiovascular: RRR, no rub S1, S2 Gastrointestinal: soft, non-tender, no distention, positive bowel sounds Neurological: moves all 4 limbs Psychiatric: normal affect, A&O x 3 Deviation from normal: right foot erythema, warmth Dx/Plan (1) Splenic infarct Code(s): D73.5 - INFARCTION OF SPLEEN Status: Acute Comment: continue Lovenox, start hypercoagulable state workup. No clear source of thrombi. (2) Renal infarct Code(s): N28.0 - ISCHEMIA AND INFARCTION OF KIDNEY Status: Acute Comment: continue Lovenox, start hypercoagulable state workup (3) Cellulitis Code(s): L03.90 - CELLULITIS, UNSPECIFIED Status: Acute Comment: start IV Ancef (4) HTN (hypertension) Code(s): I10 - ESSENTIAL (PRIMARY) HYPERTENSION Status: Chronic Comment: controlled (5) DM2 (diabetes mellitus, type 2) Status: Chronic Comment: improved control - Plan * . Review of Systems - Review of Systems Constitutional: negative: fever, chills, sweats, weakness, malaise Cardiovascular: negative: chest pain, palpitations, orthopnea, paroxysmal nocturnal dyspnea, edema, light headedness Gastrointestinal: negative: Nausea, Vomiting, Abdominal Pain, Diarrhea, Constipation, Melena, Hematochezia Genitourinary: negative: Dysuria, Frequency, Incontinence, Hematuria, Retention Musculoskeletal: Foot Pain. negative: Neck Pain, Shoulder Pain, Arm Pain, Back Pain, Hand Pain, Leg Pain - Medications/Allergies Allergies/Adverse Reactions: Allergies Allergy/AdvReac Type Severity Reaction Status Date / Time Sulfa (Sulfonamide Allergy Verified 02/25/18 12:28 Antibiotics) Medications: Current Medications Acetaminophen (Tylenol) 650 mg PO Q4H PRN PRN Reason: Headache/Fever/Mild Pain (1-3) Last Admin: 10/11/18 09:51 Dose: 650 mg Acetaminophen/Codeine Phosphate (Tylenol #3) 1 tab PO Q4H PRN PRN Reason: Moderate Pain (4-6) Acetaminophen/Codeine Phosphate (Tylenol #3) 2 tab PO Q6H [facility] Last Admin: 10/12/18 17:57 Dose: 2 tab Albuterol Sulfate (Proventil Hfa) 2 puff INH Q4HR PRN PRN Reason: Wheezing Albuterol Sulfate (Ventolin) 2.5 mg NEB Q2H PRN PRN Reason: SOB &/or Wheezing Budesonide (Pulmicort Neb Solution) 0.25 mg NEB BID-RT [facility] Last Admin: 10/12/18 07:37 Dose: 0.25 mg Dextrose/Water (Dextrose 50%) 25 gm SLOW IVP PRN PRN PRN Reason: Hypoglycemia Enoxaparin Sodium (Lovenox) 120 mg SC 1600,0400 [facility] Last Admin: 10/12/18 15:17 Dose: 120 mg Fluticasone Propionate (Flonase Nasal [place]) 0 gm NASAL DAILY [facility] Last Admin: 10/12/18 11:22 Dose: 1 spr Glucagon (Glucagon) 1 mg IM PRN PRN PRN Reason: Hypoglycemia Dextrose/Water (D5w) 1,000 mls @ 0 mls/hr IV .Q0M PRN PRN Reason: Hypoglycemia Cefazolin Sodium/Dextrose 1 gm (/ Device) 50 mls @ 200 mls/hr IVPB Q8HR [facility] Last Admin: 10/12/18 13:29 Dose: 50 mls Insulin Human Isoph/Insulin Regular (Humulin 70/30) 40 units SC BID [facility] Last Admin: 10/12/18 09:52 Dose: 40 units Insulin Human Lispro (Humalog) 0 units SC .MODERATE SLIDING SC PRN PRN Reason: Moderate Correctional Scale Last Admin: 10/12/18 11:24 Dose: 4 unit Lisinopril (Zestril) 10 mg PO DAILY [facility] Last Admin: 10/12/18 09:52 Dose: 10 mg Loratadine (Claritin) 10 mg PO DAILY [facility] Last Admin: 10/12/18 09:52 Dose: 10 mg Ondansetron HCl (Zofran Odt) 4 mg PO Q6H PRN PRN Reason: Nausea/Vomiting Last Admin: 10/12/18 15:19 Dose: 4 mg Ondansetron HCl (Zofran) 4 mg IVP Q6H PRN PRN Reason: Nausea/Vomiting Sodium Chloride (Flush - Normal Saline) 10 ml IVF Q12HR [facility] Last Admin: 10/12/18 09:53 Dose: 10 ml Sodium Chloride (Flush - Normal Saline) 10 ml IVF PRN PRN PRN Reason: Saline Flush Tramadol HCl (Ultram) 50 mg PO Q4H PRN PRN Reason: Pain Last Admin: 10/12/18 11:22 Dose: 50 mg
[2018-10-13] MEDS: Acetaminophen/Codeine 30-300mg Tablet PO SCH ×4 (02:08→18:46)
[2018-10-13] MEDS: Enoxaparin Sodium 120 MG/0.8 ML SYRINGE SC SCH ×2 (04:56→14:52)
[2018-10-13] MEDS: ceFAZolin 1 GM/D5W 1 GM in Premix Bag 1 BAG IVPB SCH ×3 (04:58→22:28)
[2018-10-13] MEDS: Albuterol Sulfate 2.5 mg/3 ml Neb NEB PRN (08:11)
[2018-10-13] MEDS: Budesonide 0.25 MG/2 ML NEB NEB SCH ×2 (08:11→19:02)
[2018-10-13 09:39] LABS: Factor VIII Test 311.9 % ACTIVE (56-157)
[2018-10-13] MEDS ORDERED: Colchicine 0.6 MG TAB PO SCH ×3 (10:00→11:00)
[2018-10-13] MEDS: HumuLIN 70/30 (300 UNITS/3 ML VIAL) SC SCH ×2 (10:02→20:24)
[2018-10-13] MEDS: Fluticasone Propionate Nasal Spray 16 gm Bottle NASAL SCH (10:04)
[2018-10-13] MEDS: Lisinopril 10 MG TAB PO SCH (10:04)
[2018-10-13] MEDS: Loratadine 10 MG TAB PO SCH (10:04)
[2018-10-13] MEDS: Acetaminophen/Codeine 30-300mg Tablet PO PRN ×3 (10:09→22:37)
[2018-10-13 10:15] LABS: #Eosinphils 0.2 thou/uL (0.0-0.7); #Lymphocytes 2.5 thou/uL (1.20-3.40); #Monocytes 0.8 thou/uL (0.11-0.59); #Neutrophils 5.6 thou/uL (1.40-6.50); %Basophils 0.5 % (0.0-1.0); %Eosinophils 2.4 % (0.0-10.0); %Lymphocytes 27.2 % (21.0-51.0); %Monocytes 8.2 % (0.0-10.0); %Neutrophils 61.7 % (42.0-75.0); Hemoglobin 13.5 g/dL (12.0-16.0); Mean Corpuscular HGB CONC 33.3 g/dL (32.0-36.0); Mean Corpuscular Hemoglobin 30.8 pg (27.0-31.0); Mean Corpuscular Volume 92.4 fL (78.0-98.0); Mean Platelet Volume 8.9 fL (7.4-10.4); Platelet Count 172 thou/uL (130-400); RBC Distribution Width 12.6 % (11.5-14.5); Red Blood Cell (RBC) Count 4.38 mill/uL (4.20-5.40); White Blood Cell (WBC) Count 9.1 thou/uL (4.8-10.8)
[2018-10-13 10:35] LABS: Anion Gap 10 mmol/L (10-20); BUN (Urea Nitrogen) 9 mg/dL (7.0-18.7); Calc. Creatinine Clearance 132 mL/min (70-130); Calcium 8.6 mg/dL (7.8-10.44); Carbon Dioxide 29 mmol/L (22-29); Chloride 102 mmol/L (98-107); Estimated GFR-MDRD 58; Glucose 301 mg/dL (70-105); Potassium 4.2 mmol/L (3.5-5.1); Sodium 137 mmol/L (136-145); Uric Acid 5.5 mg/dL (2.6-6.0)
[2018-10-13] MEDS: HumaLOG 300 UNITS/3 ML VIAL SC PRN ×2 (11:49→19:02)
[2018-10-13 13:11] LABS: Factor IX Test 212.3 % ACTIVE (56-149)
--- NOTE | 2018-10-13 16:08 | PDOC.PN ---
- Subjective Encounter Start Date: 10/13/18 Encounter Start Time: 09:20 Pt seen for followup re: gout flare. c/o ongoing pain R foot. - Objective Resuscitation Status - Order Detail: 10/11/18 04:54 Resuscitation Status Routine Resuscitation Status: FULL: Full Resuscitation MAR Reviewed: Yes Vital Signs & Weight: Vital Signs (12 hours) Temp Pulse Resp BP Pulse Ox 10/13/18 11:53 98.4 F 80 16 145/67 H 97 10/13/18 08:11 74 16 10/13/18 07:56 98.2 F 85 16 112/62 94 L Weight Weight 266 lb 9.6 oz I&O: 10/12/18 10/13/18 10/14/18 06:59 06:59 06:59 Intake Total 2160 3460 120 Output Total 500 Balance 1660 3460 120 Result Diagrams: 10/13/18 09:55 10/13/18 09:55 Additional Labs: Accuchecks 10/13/18 10/13/18 10/12/18 10:46 05:24 20:36 POC Glucose 320 H 241 H 240 H 10/12/18 16:21 POC Glucose 133 H Tele: NSR Phys Exam - Physical Examination Morbid obesity HEENT: moist MMs Neck: supple Respiratory: clear to auscultation bilateral Cardiovascular: RRR Gastrointestinal: soft R 1st MTP joint tender, decreased ROM Neurological: moves all 4 limbs Psychiatric: normal affect Dx/Plan (1) Gout Code(s): M10.9 - GOUT, UNSPECIFIED Status: Acute (2) Splenic infarct Code(s): D73.5 - INFARCTION OF SPLEEN Status: Acute Comment: continue Lovenox, workup in progress. (3) Renal infarct Code(s): N28.0 - ISCHEMIA AND INFARCTION OF KIDNEY Status: Acute Comment: continue Lovenox (4) Cellulitis Code(s): L03.90 - CELLULITIS, UNSPECIFIED Status: Acute Comment: start IV Ancef (5) HTN (hypertension) Code(s): I10 - ESSENTIAL (PRIMARY) HYPERTENSION Status: Chronic Comment: controlled (6) DM2 (diabetes mellitus, type 2) Status: Chronic Comment: improved control - Plan * . Review of Systems - Review of Systems Cardiovascular: negative: chest pain, palpitations, orthopnea, paroxysmal nocturnal dyspnea, edema, light headedness Gastrointestinal: negative: Nausea, Vomiting, Abdominal Pain, Diarrhea, Constipation, Melena, Hematochezia Musculoskeletal: Foot Pain - Medications/Allergies Allergies/Adverse Reactions: Allergies Allergy/AdvReac Type Severity Reaction Status Date / Time Sulfa (Sulfonamide Allergy Verified 02/25/18 12:28 Antibiotics) Medications: Current Medications Acetaminophen (Tylenol) 650 mg PO Q4H PRN PRN Reason: Headache/Fever/Mild Pain (1-3) Last Admin: 10/11/18 09:51 Dose: 650 mg Acetaminophen/Codeine Phosphate (Tylenol #3) 1 tab PO Q4H PRN PRN Reason: Moderate Pain (4-6) Last Admin: 10/13/18 14:51 Dose: 1 tab Acetaminophen/Codeine Phosphate (Tylenol #3) 2 tab PO Q6H [facility] Last Admin: 10/13/18 13:44 Dose: Not Given Albuterol Sulfate (Proventil Hfa) 2 puff INH Q4HR PRN PRN Reason: Wheezing Albuterol Sulfate (Ventolin) 2.5 mg NEB Q2H PRN PRN Reason: SOB &/or Wheezing Last Admin: 10/13/18 08:11 Dose: 2.5 mg Budesonide (Pulmicort Neb Solution) 0.25 mg NEB BID-RT [facility] Last Admin: 10/13/18 08:11 Dose: 0.25 mg Dextrose/Water (Dextrose 50%) 25 gm SLOW IVP PRN PRN PRN Reason: Hypoglycemia Enoxaparin Sodium (Lovenox) 120 mg SC 1600,0400 [facility] Last Admin: 10/13/18 14:52 Dose: 120 mg Fluticasone Propionate (Flonase Nasal [place]) 0 gm NASAL DAILY [facility] Last Admin: 10/13/18 10:04 Dose: 1 spr Glucagon (Glucagon) 1 mg IM PRN PRN PRN Reason: Hypoglycemia Dextrose/Water (D5w) 1,000 mls @ 0 mls/hr IV .Q0M PRN PRN Reason: Hypoglycemia Cefazolin Sodium/Dextrose 1 gm (/ Device) 50 mls @ 200 mls/hr IVPB Q8HR [facility] Last Admin: 10/13/18 04:58 Dose: 50 mls Insulin Human Isoph/Insulin Regular (Humulin 70/30) 40 units SC BID [facility] Last Admin: 10/13/18 10:02 Dose: Not Given Insulin Human Lispro (Humalog) 0 units SC .MODERATE SLIDING SC PRN PRN Reason: Moderate Correctional Scale Last Admin: 10/13/18 11:49 Dose: 8 unit Lisinopril (Zestril) 10 mg PO DAILY [facility] Last Admin: 10/13/18 10:04 Dose: 10 mg Loratadine (Claritin) 10 mg PO DAILY [facility] Last Admin: 10/13/18 10:04 Dose: 10 mg Ondansetron HCl (Zofran Odt) 4 mg PO Q6H PRN PRN Reason: Nausea/Vomiting Last Admin: 10/12/18 15:19 Dose: 4 mg Ondansetron HCl (Zofran) 4 mg IVP Q6H PRN PRN Reason: Nausea/Vomiting Sodium Chloride (Flush - Normal Saline) 10 ml IVF Q12HR [facility] Last Admin: 10/13/18 10:05 Dose: 10 ml Sodium Chloride (Flush - Normal Saline) 10 ml IVF PRN PRN PRN Reason: Saline Flush Tramadol HCl (Ultram) 50 mg PO Q4H PRN PRN Reason: Pain Last Admin: 10/12/18 11:22 Dose: 50 mg
--- NOTE | 2018-10-13 17:44 | CON ---
DATE OF CONSULTATION: REASON FOR CONSULT: Splenic infarct. HISTORY OF PRESENT ILLNESS: Ms. Pinto is a pleasant 47-year-old female with past medical history of obesity, fibromyalgia, and diabetes. She presented to the emergency room after an abrupt onset of severe abdominal pain, diaphoresis, and nausea. She was sleeping when she began to have pain and awoke her up. She went to the bathroom and had tingling and dizziness. She was brought to the emergency room by 911. She underwent a chest CT, which showed no acute findings. She underwent an abdominal CT which showed infarction of approximately 30% of the spleen. There were small peripheral infarcts of the left kidney. There were hyperdensities throughout the infrarenal abdominal aorta consistent with thromboemboli. There was some questionable bowel thickening in the right lower quadrant. The patient received morphine with relief of her pain. She then began to have right foot pain and swelling, which is currently her primary complaint. The patient has no history of thromboemboli. She has had a tubal ligation and gallbladder surgery with no complications. Her mother had a DVT after surgery and was on Coumadin at some point. No other family history of clotting. She does have a history of fibromyalgia. She was diagnosed over 10 years ago. She has not been on Lyrica for over a year. She does admit to occasional marijuana use, but no cocaine or methamphetamine use. Currently, she denies shortness of breath, chest pain. No abdominal discomfort. She is taking p.o. and having a bowel movement. Again her primary complaint is right foot discomfort. She underwent a venous ultrasound which was negative for DVT. She has been started on medication for gout. PAST MEDICAL HISTORY: 1. Fibromyalgia. 2. Diabetes mellitus. 3. Anxiety and depression. PAST SURGICAL HISTORY: 1. Gallbladder disease. 2. Cholecystectomy. 3. Tubal ligation. ALLERGIES: SULFA. HOME MEDICATIONS: 1. Insulin 70/30 b.i.d. 2. Lisinopril 10 mg daily. 3. Claritin daily. 4. ProAir p.r.n. FAMILY HISTORY: Mother had DVT after surgical procedure. No other history of clotting. SOCIAL HISTORY: She is . Smokes marijuana. Denies tobacco use. REVIEW OF SYSTEMS: A 10-point review of systems is negative except for noted in HPI. PHYSICAL EXAMINATION: VITAL SIGNS: Temperature is 98.4, pulse is 80, respiratory rate 16, BP is 145/67, she is 97% on room air. GENERAL: This is an obese female in no acute distress. HEENT: Normocephalic, atraumatic. Pupils are equal and reactive to light. NECK: Supple. CV: Regular rate and rhythm. LUNGS: Clear. ABDOMEN: Soft and nontender. Bowel sounds are positive. EXTREMITIES: No clubbing or cyanosis. She has swelling and erythema of her right arch. SKIN: No rash. HEMATOLOGIC: No petechiae or purpura. NEUROLOGIC: Nonfocal. PSYCH: She is alert, oriented, and appropriate. PERTINENT LABS AND X-RAYS: Current WBCs are 9.1, hemoglobin 13.5, hematocrit 40.5, platelet count 172,000, 61% neutrophils, 27% lymphocytes. PT 13.6, INR is 1.0, and PTT is 40.9. D-dimer is 3.86. Sodium is 137, potassium 4.2, chloride 102, CO2 is 29, BUN is 9, creatinine 1.03, uric acid is 5.5, calcium 8.6, bilirubin 0.3, AST is 11, ALT is 12, alkaline phosphatase is 107. Serum total protein 6.2, albumin 3.4, globulin 2.8. is negative. Homocystine is 10.23. RADIOLOGY: Per HPI. ASSESSMENT: 1. Acute arterial thrombus of the spleen, left kidney, and aorta. 2. Right foot pain with erythema. DISCUSSION: The patient has been started on therapeutic Lovenox for her thrombus. Hypercoagulation panel has been sent, but findings will be insignificant given her clotting, recurrent thrombus. We will check antiphospholipid panel, lupus panel, and PNH. Check JAK2 mutations, would eventually transition to Coumadin and follow up in the outpatient setting for results. Thank you for the consult. We will follow along with her hospital course. Dr. Jessica has been discussed with Dr. Ferrera who will follow. Job ID: [id number]
[2018-10-13] MEDS: traMADol HCl 50 MG TAB PO PRN (20:23)
[2018-10-13] MEDS: Ondansetron ODT 4 MG TAB PO PRN (22:37)
[2018-10-14] MEDS: Acetaminophen/Codeine 30-300mg Tablet PO SCH ×4 (01:41→18:29)
[2018-10-14] MEDS: Acetaminophen/Codeine 30-300mg Tablet PO PRN ×3 (03:28→17:59)
[2018-10-14] MEDS: Enoxaparin Sodium 120 MG/0.8 ML SYRINGE SC SCH ×2 (03:30→15:19)
[2018-10-14] MEDS: Albuterol Sulfate 2.5 mg/3 ml Neb NEB PRN ×2 (03:47→18:44)
[2018-10-14] MEDS: ceFAZolin 1 GM/D5W 1 GM in Premix Bag 1 BAG IVPB SCH ×3 (05:07→19:54)
[2018-10-14 05:19] LABS: #Basophils 0.1 thou/uL (0.0-0.2); #Eosinphils 0.2 thou/uL (0.0-0.7); #Lymphocytes 2.1 thou/uL (1.20-3.40); #Monocytes 0.7 thou/uL (0.11-0.59); #Neutrophils 4.7 thou/uL (1.40-6.50); %Basophils 0.9 % (0.0-1.0); %Eosinophils 3.1 % (0.0-10.0); %Lymphocytes 26.8 % (21.0-51.0); %Monocytes 8.9 % (0.0-10.0); %Neutrophils 60.3 % (42.0-75.0); Hemoglobin 12.9 g/dL (12.0-16.0); Mean Corpuscular HGB CONC 33.3 g/dL (32.0-36.0); Mean Corpuscular Hemoglobin 30.6 pg (27.0-31.0); Mean Platelet Volume 8.6 fL (7.4-10.4); Platelet Count 176 thou/uL (130-400); RBC Distribution Width 12.5 % (11.5-14.5); Red Blood Cell (RBC) Count 4.21 mill/uL (4.20-5.40); White Blood Cell (WBC) Count 7.8 thou/uL (4.8-10.8)
[2018-10-14] MEDS: HumaLOG 300 UNITS/3 ML VIAL SC PRN ×4 (05:20→19:54)
[2018-10-14 05:38] LABS: Anion Gap 10 mmol/L (10-20); BUN (Urea Nitrogen) 7 mg/dL (7.0-18.7); Calc. Creatinine Clearance 154 mL/min (70-130); Calcium 8.6 mg/dL (7.8-10.44); Carbon Dioxide 29 mmol/L (22-29); Chloride 102 mmol/L (98-107); Estimated GFR-MDRD 69; Glucose 235 mg/dL (70-105); Potassium 4.7 mmol/L (3.5-5.1); Sodium 136 mmol/L (136-145)
[2018-10-14] MEDS: Loratadine 10 MG TAB PO SCH (08:14)
[2018-10-14] MEDS: Lisinopril 10 MG TAB PO SCH (08:14)
[2018-10-14] MEDS: HumuLIN 70/30 (300 UNITS/3 ML VIAL) SC SCH ×2 (08:14→19:54)
[2018-10-14] MEDS: Budesonide 0.25 MG/2 ML NEB NEB SCH ×2 (08:30→18:42)
--- NOTE | 2018-10-14 09:41 | ULT ---
BILATERAL EXTREMITY DOPPLER ARTERIAL ULTRASOUND WITH DHALIWAL SCALE AND DOPPLER COLOR FLOW AND SPECTRAL A NALYSIS: INDICATION: Erythema, edema of right foot. FINDINGS: From the level of the common femoral artery to the popliteal artery of the left lower extremity there is triphasic waveform. Below the level of the right knee, there is a triphasic waveform of the ante rior tibial artery. The posterior tibial and dorsalis pedis arteries demonstrate monophasic waveform s. Within the left profundus femoris artery, there is a monophasic waveform. Otherwise, throughout the left lower extremity there is a triphasic waveform documented. Incidental note of a focus of complex echotexture at the dorsum of the right foot, approximately 1.5 cm in diameter suggestive of a focus of fluid echogenicity. IMPRESSION: Evidence of scattered peripheral vascular disease of the lower extremities most notable below the lev el of the right knee with moderate to severe localized peripheral vascular disease. POS: [facility]
[2018-10-14] MEDS: Fluticasone Propionate Nasal Spray 16 gm Bottle NASAL SCH ×2 (11:43→12:14)
--- NOTE | 2018-10-14 13:10 | PDOC.PN ---
- Subjective Encounter Start Date: 10/14/18 Encounter Start Time: 13:08 Pt seen for followup re: gout. Has ongoing right foot pain. Received colchicine yesterday. - Objective Resuscitation Status - Order Detail: 10/11/18 04:54 Resuscitation Status Routine Resuscitation Status: FULL: Full Resuscitation Vital Signs & Weight: Vital Signs (12 hours) Temp Pulse Resp BP BP Pulse Ox 10/14/18 11:00 98.3 F 80 18 110/75 95 10/14/18 09:05 96 10/14/18 08:30 72 14 96 10/14/18 08:14 125/80 10/14/18 08:10 125/80 10/14/18 07:27 98.4 F 72 18 93/61 96 10/14/18 03:47 84 16 96 10/14/18 03:37 98.2 F 75 18 114/64 96 Weight Weight 266 lb 9.6 oz I&O: 10/13/18 10/14/18 10/15/18 06:59 06:59 06:59 Intake Total 3460 1750 Balance 3460 1750 Result Diagrams: 10/14/18 04:55 10/14/18 04:55 Additional Labs: Accuchecks 10/14/18 10/14/18 10/13/18 11:24 05:17 20:49 POC Glucose 256 H 217 H 223 H 10/13/18 10/13/18 20:02 16:51 POC Glucose 265 H 328 H Dx/Plan (1) Gout Code(s): M10.9 - GOUT, UNSPECIFIED Status: Acute Comment: Pt had colchicine yesterday, trial prednisone (2) Splenic infarct Code(s): D73.5 - INFARCTION OF SPLEEN Status: Acute Comment: continue Lovenox (3) PVD (peripheral vascular disease) Code(s): I73.9 - PERIPHERAL VASCULAR DISEASE, UNSPECIFIED Status: Acute Comment: continue Lovenox, consult CV surgery (4) Renal infarct Code(s): N28.0 - ISCHEMIA AND INFARCTION OF KIDNEY Status: Acute Comment: continue Lovenox (5) Cellulitis Code(s): L03.90 - CELLULITIS, UNSPECIFIED Status: Acute Comment: continue Ancef (6) HTN (hypertension) Code(s): I10 - ESSENTIAL (PRIMARY) HYPERTENSION Status: Chronic Comment: controlled (7) DM2 (diabetes mellitus, type 2) Status: Chronic Comment: improved control - Plan * . Review of Systems - Review of Systems Respiratory: negative: Cough, Dry, Shortness of Breath, Hemoptysis, SOB with Excertion, Pleuritic Pain, Sputum, Wheezing Cardiovascular: negative: chest pain, palpitations, orthopnea, paroxysmal nocturnal dyspnea, edema, light headedness - Medications/Allergies Allergies/Adverse Reactions: Allergies Allergy/AdvReac Type Severity Reaction Status Date / Time Sulfa (Sulfonamide Allergy Verified 02/25/18 12:28 Antibiotics) Medications: Current Medications Acetaminophen (Tylenol) 650 mg PO Q4H PRN PRN Reason: Headache/Fever/Mild Pain (1-3) Last Admin: 10/11/18 09:51 Dose: 650 mg Acetaminophen/Codeine Phosphate (Tylenol #3) 1 tab PO Q4H PRN PRN Reason: Moderate Pain (4-6) Last Admin: 10/14/18 12:11 Dose: 1 tab Acetaminophen/Codeine Phosphate (Tylenol #3) 2 tab PO Q6H [facility] Last Admin: 10/14/18 13:04 Dose: Not Given Albuterol Sulfate (Proventil Hfa) 2 puff INH Q4HR PRN PRN Reason: Wheezing Albuterol Sulfate (Ventolin) 2.5 mg NEB Q2H PRN PRN Reason: SOB &/or Wheezing Last Admin: 10/14/18 03:47 Dose: 2.5 mg Budesonide (Pulmicort Neb Solution) 0.25 mg NEB BID-RT [facility] Last Admin: 10/14/18 08:30 Dose: 0.25 mg Dextrose/Water (Dextrose 50%) 25 gm SLOW IVP PRN PRN PRN Reason: Hypoglycemia Enoxaparin Sodium (Lovenox) 120 mg SC 1600,0400 [facility] Last Admin: 10/14/18 03:30 Dose: 120 mg Fluticasone Propionate (Flonase Nasal [place]) 0 gm NASAL DAILY [facility] Last Admin: 10/14/18 12:14 Dose: 1 spr Glucagon (Glucagon) 1 mg IM PRN PRN PRN Reason: Hypoglycemia Dextrose/Water (D5w) 1,000 mls @ 0 mls/hr IV .Q0M PRN PRN Reason: Hypoglycemia Cefazolin Sodium/Dextrose 1 gm (/ Device) 50 mls @ 200 mls/hr IVPB Q8HR [facility] Last Admin: 10/14/18 05:07 Dose: 50 mls Insulin Human Isoph/Insulin Regular (Humulin 70/30) 40 units SC BID [facility] Last Admin: 10/14/18 08:14 Dose: 40 units Insulin Human Lispro (Humalog) 0 units SC .MODERATE SLIDING SC PRN PRN Reason: Moderate Correctional Scale Last Admin: 10/14/18 12:14 Dose: 6 unit Lisinopril (Zestril) 10 mg PO DAILY [facility] Last Admin: 10/14/18 08:14 Dose: 10 mg Loratadine (Claritin) 10 mg PO DAILY [facility] Last Admin: 10/14/18 08:14 Dose: 10 mg Ondansetron HCl (Zofran Odt) 4 mg PO Q6H PRN PRN Reason: Nausea/Vomiting Last Admin: 10/13/18 22:37 Dose: 4 mg Ondansetron HCl (Zofran) 4 mg IVP Q6H PRN PRN Reason: Nausea/Vomiting Prednisone (Prednisone) 40 mg PO NOW [facility] Stop: 10/14/18 15:15 Sodium Chloride (Flush - Normal Saline) 10 ml IVF Q12HR [facility] Last Admin: 10/14/18 08:14 Dose: 10 ml Sodium Chloride (Flush - Normal Saline) 10 ml IVF PRN PRN PRN Reason: Saline Flush Tramadol HCl (Ultram) 50 mg PO Q4H PRN PRN Reason: Pain Last Admin: 10/13/18 20:23 Dose: 50 mg
[2018-10-14] MEDS ORDERED: predniSONE 20 MG TAB PO SCH (13:15)
--- NOTE | 2018-10-14 19:33 | CON ---
DATE OF CONSULTATION: 10/14/2018 OTHER CONSULTING PHYSICIAN: Tori Sawyer NP CHIEF COMPLAINT: Right foot pain. HISTORY OF PRESENT ILLNESS: The patient is an obese 47-year-old diabetic, who has been out of insulin for about 3 weeks. On the night of Tuesday, , she awoke with sudden onset of severe abdominal pain that was associated with nausea and diaphoresis. She had a sense of impending doom and summoned EMS. Upon arrival in the emergency room, her heart rate was in the 120s and blood pressure was 103/87. On a non-rebreather mask, her O2 saturations were 97%. While in the emergency room, she developed right foot pain as well. She noted some reddish discoloration or purplish discoloration of the foot and was quite painful to walk on it. CT scanning of the abdomen showed findings consistent with fairly large peripheral infarct in her spleen and smaller peripheral infarcts in her left kidney. There were hypodensities in the infrarenal aorta that were interpreted as thrombi. She was started on anticoagulation in the form of Lovenox and she was started on Ancef for possible cellulitis. Over the course of the last few days, the discoloration in her right foot has dissipated some and the discomfort is improved greatly. She said that initially she was unable to bear weight on it much at all and now she is able to walk without too much difficulty. PAST MEDICAL HISTORY: Significant for diabetes and fibromyalgia. She has had a previous cholecystectomy and tubal ligation. She is supposed to be on insulin twice a day, but ran out. She also is on lisinopril 10 mg a day and Claritin daily. She uses ProAir p.r.n. ALLERGIES: SHE REPORTS AN ALLERGY TO SULFONAMIDES. FAMILY HISTORY: Negative for any familial history of unusual thrombotic or thromboembolic disease, although her mother apparently did have a DVT after a surgical procedure. The patient does not use tobacco, but admits to marijuana use and in fact smoked marijuana the night of her presentation. She denies any other illicit drug use. PHYSICAL EXAMINATION: GENERAL: On exam, she is 5 feet and 4 inches, weighs 266.5 pounds. Her maximum temperature this hospitalization was 99.4 early on the evening of the and currently, it is 98.4. Her heart rate is 93, blood pressure 133/78. Room air O2 saturations are in the mid 90s. EXTREMITIES: Her right foot has some faint purplish mottling to the forefoot that involves primarily the medial aspect of the foot and diminishes in its involvement as one goes laterally. I am not able to palpate popliteal or pedal pulses on either side. On the affected side, she has a very strong Doppler signal in her posterior tibial and a good signal in her dorsalis pedis. 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 DIAGNOSTIC DATA: Her EKG was interpreted as sinus tachycardia in the emergency room and she has had no documented atrial fibrillation. Laboratory exam at presentation; her white count was 15.8 with a computerized differential of 63.9% neutrophils and 31.5% lymphocytes. Her hemoglobin is 15.9, hematocrit 47.7, and platelets 364,000. The following day; her white count was 18.6 with 80.7% neutrophils and 12.2% lymphocytes. Since then, her white count has come down to 9.1 on the and 7.8 this morning. On presentation, her electrolytes were normal. BUN was 12, creatinine 1.24, glucose was 513, and calcium was 9.1. LFTs were normal. Albumin was 3.4. BNP was 15.3. Her glucoses remained in the high 300s to even 600s through the evening of the . On the morning of the , on her BMP, her glucose was 83, BUN was 14, creatinine 0.76. Even going back to previous admission last fall, where she had significantly elevated glucoses. I was not able to find a hemoglobin A1c. Her PT was 13.6, INR 1.0, and PTT 40.9 on the . Her factor VIII activity was 311.9 with normal range 56 to 157. Her factor IX activity was 212.3 with a normal range of 56 to 149. Protein S was within normal range at 116. Her CT scan is as described as above, she has what appears to be some stippling of calcifications in her aorta, although no obvious or significant stenoses. I can certainly appreciate the hypodensities that are described, although clinically it strikes me as somewhat odd either de clair thrombi or thromboemboli would remain attached to the aortic wall. Her right lower extremity arterial Doppler describes some atherosclerotic disease in the tibial vessels. What I see looks like some hyperechoic changes suggestive of calcifications in the vessel wall. There was one area where it is hard to follow the lumen in the tibial vessels. IMPRESSION AND RECOMMENDATIONS: Whether this represents multiple areas of thrombosis or a shower of emboli from thrombus elsewhere, may be difficult to assess, but the patient has not had any documented atrial fibrillation. Her echocardiogram suggested an ejection fraction of 50% to 55% with normal left atrial size, but did not specifically address the presence or absence of intracardiac thrombi or masses. On exam, the changes that I see in the foot are consistent with a shower of emboli into the foot and that are well beyond the reach of retrieval by an embolectomy or surgical bypass and unfortunately, her foot is going to either get better or it is not and there is not much surgically that can be done to affect that course. She is being started on anticoagulation and based upon the notes, it looks like she will be shifted over to Coumadin, which seems prudent. I find the improvement in her symptoms and what she describes as improvement in the mottling and discoloration of the foot, encouraging, but it is really a little bit too early to know what the fate of the foot is going to prove to be. Job ID: [id number]
[2018-10-14] MEDS: traMADol HCl 50 MG TAB PO PRN (20:02)
[2018-10-15] MEDS: Acetaminophen/Codeine 30-300mg Tablet PO SCH ×4 (01:12→20:07)
[2018-10-15] MEDS: Enoxaparin Sodium 120 MG/0.8 ML SYRINGE SC SCH ×2 (05:37→16:57)
[2018-10-15] MEDS: HumaLOG 300 UNITS/3 ML VIAL SC PRN ×2 (05:37→14:13)
[2018-10-15] MEDS: ceFAZolin 1 GM/D5W 1 GM in Premix Bag 1 BAG IVPB SCH ×3 (05:37→21:46)
[2018-10-15] MEDS: Budesonide 0.25 MG/2 ML NEB NEB SCH ×2 (06:51→18:41)
[2018-10-15] MEDS: Loratadine 10 MG TAB PO SCH (08:44)
[2018-10-15] MEDS: Lisinopril 10 MG TAB PO SCH (08:44)
[2018-10-15] MEDS: Fluticasone Propionate Nasal Spray 16 gm Bottle NASAL SCH (08:44)
[2018-10-15] MEDS: HumuLIN 70/30 (300 UNITS/3 ML VIAL) SC SCH ×2 (08:45→20:09)
[2018-10-15 09:20] LABS: Cardiac Risk 5.5 (Less than 4.5)
--- NOTE | 2018-10-15 14:14 | PDOC.PN ---
- Subjective Encounter Start Date: 10/15/18 Encounter Start Time: 10:15 Subjective: pt up in bed very emotional about what has been going on with -: her health. - Objective Resuscitation Status - Order Detail: 10/11/18 04:54 Resuscitation Status Routine Resuscitation Status: FULL: Full Resuscitation Vital Signs & Weight: Vital Signs (12 hours) Temp Pulse Resp BP BP Pulse Ox 10/15/18 11:00 98.3 F 79 18 137/85 93 L 10/15/18 08:44 129/76 10/15/18 08:00 98.3 F 76 18 129/77 92 L 10/15/18 06:51 93 16 94 L Weight Weight 266 lb 9.6 oz I&O: 10/14/18 10/15/18 10/16/18 06:59 06:59 06:59 Intake Total 1750 1620 Balance 1750 1620 Result Diagrams: 10/14/18 04:55 10/14/18 04:55 Additional Labs: Accuchecks 10/15/18 10/15/18 10/14/18 11:28 05:03 19:09 POC Glucose 258 H 229 H 424 H 10/14/18 17:03 POC Glucose 212 H Phys Exam - Physical Examination Neck: no nodes, no JVD, supple, full ROM Respiratory: no wheezing, no rales, no rhonchi, wheezing present, clear to auscultation bilateral Cardiovascular: RRR, no significant murmur, no rub, gallop, irregular Gastrointestinal: soft, non-tender, no distention, positive bowel sounds right foot warm to touch, mild pain on touch around right great toe Dx/Plan (1) Gout Code(s): M10.9 - GOUT, UNSPECIFIED Status: Acute Comment: Pt had colchicine yesterday, trial prednisone (2) PVD (peripheral vascular disease) Code(s): I73.9 - PERIPHERAL VASCULAR DISEASE, UNSPECIFIED Status: Acute Comment: continue Lovenox, consult CV surgery (3) Renal infarct Code(s): N28.0 - ISCHEMIA AND INFARCTION OF KIDNEY Status: Acute Comment: continue Lovenox (4) Splenic infarct Code(s): D73.5 - INFARCTION OF SPLEEN Status: Acute Comment: continue Lovenox (5) Diabetes mellitus type 2 in obese Code(s): E11.69 - TYPE 2 DIABETES MELLITUS WITH OTHER SPECIFIED COMPLICATION; E66.9 - OBESITY, UNSPECIFIED Status: Acute - Plan will start pt on coumadin. pt on lovonox -: recommended to get her mammogram and colonoscopy as -: outpatient. Additional blood work per heme for her -: hypercoagulation * . Review of Systems - Review of Systems Respiratory: negative: Cough, Dry, Shortness of Breath, Hemoptysis, SOB with Excertion, Pleuritic Pain, Sputum, Wheezing Cardiovascular: negative: chest pain, palpitations, orthopnea, paroxysmal nocturnal dyspnea, edema, light headedness, other Gastrointestinal: negative: Nausea, Vomiting, Abdominal Pain, Diarrhea, Constipation, Melena, Hematochezia, Other - Medications/Allergies Allergies/Adverse Reactions: Allergies Allergy/AdvReac Type Severity Reaction Status Date / Time Sulfa (Sulfonamide Allergy Verified 02/25/18 12:28 Antibiotics) Medications: Current Medications Acetaminophen (Tylenol) 650 mg PO Q4H PRN PRN Reason: Headache/Fever/Mild Pain (1-3) Last Admin: 10/11/18 09:51 Dose: 650 mg Acetaminophen/Codeine Phosphate (Tylenol #3) 1 tab PO Q4H PRN PRN Reason: Moderate Pain (4-6) Last Admin: 10/14/18 17:59 Dose: 1 tab Acetaminophen/Codeine Phosphate (Tylenol #3) 2 tab PO Q6H ADEN Last Admin: 10/15/18 12:53 Dose: 2 tab Albuterol Sulfate (Proventil Hfa) 2 puff INH Q4HR PRN PRN Reason: Wheezing Albuterol Sulfate (Ventolin) 2.5 mg NEB Q2H PRN PRN Reason: SOB &/or Wheezing Last Admin: 10/14/18 18:44 Dose: 2.5 mg Budesonide (Pulmicort Neb Solution) 0.25 mg NEB BID-RT [facility] Last Admin: 10/15/18 06:51 Dose: 0.25 mg Dextrose/Water (Dextrose 50%) 25 gm SLOW IVP PRN PRN PRN Reason: Hypoglycemia Enoxaparin Sodium (Lovenox) 120 mg SC 1600,0400 [facility] Last Admin: 10/15/18 05:37 Dose: 120 mg Fluticasone Propionate (Flonase Nasal [place]) 0 gm NASAL DAILY [facility] Last Admin: 10/15/18 08:44 Dose: 1 spr Glucagon (Glucagon) 1 mg IM PRN PRN PRN Reason: Hypoglycemia Dextrose/Water (D5w) 1,000 mls @ 0 mls/hr IV .Q0M PRN PRN Reason: Hypoglycemia Cefazolin Sodium/Dextrose 1 gm (/ Device) 50 mls @ 200 mls/hr IVPB Q8HR [facility] Last Admin: 10/15/18 05:37 Dose: 50 mls Insulin Human Isoph/Insulin Regular (Humulin 70/30) 40 units SC BID [facility] Last Admin: 10/15/18 08:45 Dose: 40 units Insulin Human Lispro (Humalog) 0 units SC .MODERATE SLIDING SC PRN PRN Reason: Moderate Correctional Scale Last Admin: 10/15/18 05:37 Dose: 4 unit Lisinopril (Zestril) 10 mg PO DAILY [facility] Last Admin: 10/15/18 08:44 Dose: 10 mg Loratadine (Claritin) 10 mg PO DAILY [facility] Last Admin: 10/15/18 08:44 Dose: 10 mg Miscellaneous Medication (Pharmacy To Dose) 1 each PO DAILY [facility] Ondansetron HCl (Zofran Odt) 4 mg PO Q6H PRN PRN Reason: Nausea/Vomiting Last Admin: 10/13/18 22:37 Dose: 4 mg Ondansetron HCl (Zofran) 4 mg IVP Q6H PRN PRN Reason: Nausea/Vomiting Sodium Chloride (Flush - Normal Saline) 10 ml IVF Q12HR [facility] Last Admin: 10/14/18 19:55 Dose: 10 ml Sodium Chloride (Flush - Normal Saline) 10 ml IVF PRN PRN PRN Reason: Saline Flush Tramadol HCl (Ultram) 50 mg PO Q4H PRN PRN Reason: Pain Last Admin: 10/14/18 20:02 Dose: 50 mg Warfarin Sodium (Coumadin) 5 mg PO 1700 [facility]
[2018-10-15] MEDS: Warfarin Sodium 5 MG TAB PO SCH (16:57)
[2018-10-16] MEDS: Acetaminophen/Codeine 30-300mg Tablet PO SCH ×4 (00:38→18:08)
[2018-10-16 05:16] LABS: INR-International Normal Ratio 0.9; Prothrombin Time 12.1 SEC (12.0-14.7)
[2018-10-16] MEDS: ceFAZolin 1 GM/D5W 1 GM in Premix Bag 1 BAG IVPB SCH ×2 (05:32→13:44)
[2018-10-16] MEDS: Enoxaparin Sodium 120 MG/0.8 ML SYRINGE SC SCH ×2 (05:32→16:20)
[2018-10-16] MEDS: Budesonide 0.25 MG/2 ML NEB NEB SCH ×2 (06:38→18:49)
[2018-10-16] MEDS: Lisinopril 10 MG TAB PO SCH (08:34)
[2018-10-16] MEDS: Fluticasone Propionate Nasal Spray 16 gm Bottle NASAL SCH (08:36)
[2018-10-16] MEDS: HumuLIN 70/30 (300 UNITS/3 ML VIAL) SC SCH ×2 (08:36→20:03)
[2018-10-16] MEDS: Loratadine 10 MG TAB PO SCH (09:51)
[2018-10-16 10:48] LABS: Protein C Activity 104 % (78-152)
[2018-10-16 12:28] LABS: ANA Symphony (Qualitative) Negative (Negative); ANA Symphony (Quantitative) 0.1 Ratio (< 0.7 Negative); Cardiolipin IgA Ab 1.9 APL-U/mL (<14 Negative); Cardiolipin IgG Ab Less than 0.5 GPL-U/mL (<10 Negative); EliA APS New Method **** NEW METHOD ****; beta-2-Glycoprotein I IgG Ab Less than 0.6 U/mL (<7 Negative); beta-2-Glycoprotein I IgM Abs Less than 2.9 U/mL (<7 Negative); dsDNA IgG Antibody Less than 0.5 IU/mL (<10 Negative)
--- NOTE | 2018-10-16 12:39 | PDOC.PN ---
- Subjective Encounter Start Date: 10/16/18 Encounter Start Time: 10:15 Subjective: pt up in bed no complains - Objective Resuscitation Status - Order Detail: 10/11/18 04:54 Resuscitation Status Routine Resuscitation Status: FULL: Full Resuscitation Vital Signs & Weight: Vital Signs (12 hours) Temp Pulse Resp BP BP Pulse Ox 10/16/18 08:34 132/86 10/16/18 08:00 98.3 F 75 18 132/86 93 L 10/16/18 06:38 73 18 97 10/16/18 05:00 98.0 F 71 16 139/82 99 Weight Weight 266 lb 9.6 oz I&O: 10/15/18 10/16/18 10/17/18 06:59 06:59 06:59 Intake Total 1620 500 Balance 1620 500 Result Diagrams: 10/14/18 04:55 10/14/18 04:55 Additional Labs: Accuchecks 10/16/18 10/16/18 10/15/18 11:42 04:53 19:40 POC Glucose 195 H 88 261 H 10/15/18 16:51 POC Glucose 130 H Phys Exam - Physical Examination Neck: no nodes, no JVD, supple, full ROM Respiratory: no wheezing, no rales, no rhonchi, wheezing present, clear to auscultation bilateral Cardiovascular: RRR, no significant murmur, no rub, gallop, irregular Gastrointestinal: soft, non-tender, no distention, positive bowel sounds Musculoskeletal: no edema, pulses present, edema present Dx/Plan (1) Gout Code(s): M10.9 - GOUT, UNSPECIFIED Status: Acute Comment: Pt had colchicine yesterday, trial prednisone (2) PVD (peripheral vascular disease) Code(s): I73.9 - PERIPHERAL VASCULAR DISEASE, UNSPECIFIED Status: Acute Comment: continue Lovenox, consult CV surgery (3) Renal infarct Code(s): N28.0 - ISCHEMIA AND INFARCTION OF KIDNEY Status: Acute Comment: continue Lovenox (4) Splenic infarct Code(s): D73.5 - INFARCTION OF SPLEEN Status: Acute Comment: continue Lovenox (5) Diabetes mellitus type 2 in obese Code(s): E11.69 - TYPE 2 DIABETES MELLITUS WITH OTHER SPECIFIED COMPLICATION; E66.9 - OBESITY, UNSPECIFIED Status: Acute - Plan inr still subtheraputic -: she will need to follow up with her pcp for routine screening * . Review of Systems - Review of Systems Respiratory: negative: Cough, Dry, Shortness of Breath, Hemoptysis, SOB with Excertion, Pleuritic Pain, Sputum, Wheezing Cardiovascular: negative: chest pain, palpitations, orthopnea, paroxysmal nocturnal dyspnea, edema, light headedness, other Gastrointestinal: negative: Nausea, Vomiting, Abdominal Pain, Diarrhea, Constipation, Melena, Hematochezia, Other - Medications/Allergies Allergies/Adverse Reactions: Allergies Allergy/AdvReac Type Severity Reaction Status Date / Time Sulfa (Sulfonamide Allergy Verified 02/25/18 12:28 Antibiotics) Medications: Current Medications Acetaminophen (Tylenol) 650 mg PO Q4H PRN PRN Reason: Headache/Fever/Mild Pain (1-3) Last Admin: 10/11/18 09:51 Dose: 650 mg Acetaminophen/Codeine Phosphate (Tylenol #3) 1 tab PO Q4H PRN PRN Reason: Moderate Pain (4-6) Last Admin: 10/14/18 17:59 Dose: 1 tab Acetaminophen/Codeine Phosphate (Tylenol #3) 2 tab PO Q6H ADEN Last Admin: 10/16/18 08:34 Dose: 2 tab Albuterol Sulfate (Proventil Hfa) 2 puff INH Q4HR PRN PRN Reason: Wheezing Albuterol Sulfate (Ventolin) 2.5 mg NEB Q2H PRN PRN Reason: SOB &/or Wheezing Last Admin: 10/14/18 18:44 Dose: 2.5 mg Budesonide (Pulmicort Neb Solution) 0.25 mg NEB BID-RT [facility] Last Admin: 10/16/18 06:38 Dose: 0.25 mg Dextrose/Water (Dextrose 50%) 25 gm SLOW IVP PRN PRN PRN Reason: Hypoglycemia Enoxaparin Sodium (Lovenox) 120 mg SC 1600,0400 [facility] Last Admin: 10/16/18 05:32 Dose: 120 mg Fluticasone Propionate (Flonase Nasal [place]) 0 gm NASAL DAILY [facility] Last Admin: 10/16/18 08:36 Dose: 1 spr Glucagon (Glucagon) 1 mg IM PRN PRN PRN Reason: Hypoglycemia Dextrose/Water (D5w) 1,000 mls @ 0 mls/hr IV .Q0M PRN PRN Reason: Hypoglycemia Cefazolin Sodium/Dextrose 1 gm (/ Device) 50 mls @ 200 mls/hr IVPB Q8HR [facility] Last Admin: 10/16/18 05:32 Dose: 50 mls Insulin Human Isoph/Insulin Regular (Humulin 70/30) 40 units SC BID [facility] Last Admin: 10/16/18 08:36 Dose: Not Given Insulin Human Lispro (Humalog) 0 units SC .MODERATE SLIDING SC PRN PRN Reason: Moderate Correctional Scale Last Admin: 10/15/18 14:13 Dose: 6 unit Lisinopril (Zestril) 10 mg PO DAILY [facility] Last Admin: 10/16/18 08:34 Dose: 10 mg Loratadine (Claritin) 10 mg PO DAILY [facility] Last Admin: 10/16/18 09:51 Dose: 10 mg Melatonin (Melatonin) 3 mg PO HS PRN PRN Reason: Insomnia Miscellaneous Medication (Pharmacy To Dose) 1 each PO DAILY [facility] Last Admin: 10/16/18 09:51 Dose: Not Given Ondansetron HCl (Zofran Odt) 4 mg PO Q6H PRN PRN Reason: Nausea/Vomiting Last Admin: 10/13/18 22:37 Dose: 4 mg Ondansetron HCl (Zofran) 4 mg IVP Q6H PRN PRN Reason: Nausea/Vomiting Sodium Chloride (Flush - Normal Saline) 10 ml IVF Q12HR [facility] Last Admin: 10/16/18 08:37 Dose: 10 ml Sodium Chloride (Flush - Normal Saline) 10 ml IVF PRN PRN PRN Reason: Saline Flush Tramadol HCl (Ultram) 50 mg PO Q4H PRN PRN Reason: Pain Last Admin: 10/14/18 20:02 Dose: 50 mg Warfarin Sodium (Coumadin) 5 mg PO 1700 [facility] Last Admin: 10/15/18 16:57 Dose: 5 mg
[2018-10-16] MEDS: Warfarin Sodium 5 MG TAB PO SCH (16:21)
[2018-10-16] MEDS: HumaLOG 300 UNITS/3 ML VIAL SC PRN ×2 (17:17→20:03)
[2018-10-16] MEDS: Melatonin 3 MG TAB PO PRN (20:08)
[2018-10-17] MEDS: Acetaminophen/Codeine 30-300mg Tablet PO SCH ×4 (00:38→16:50)
[2018-10-17] MEDS: Enoxaparin Sodium 120 MG/0.8 ML SYRINGE SC SCH ×2 (05:41→16:49)
[2018-10-17] MEDS: Budesonide 0.25 MG/2 ML NEB NEB SCH ×2 (06:20→19:12)
[2018-10-17] MEDS: Loratadine 10 MG TAB PO SCH (08:10)
[2018-10-17] MEDS: Lisinopril 10 MG TAB PO SCH (08:10)
[2018-10-17] MEDS: Fluticasone Propionate Nasal Spray 16 gm Bottle NASAL SCH (08:13)
[2018-10-17] MEDS: HumuLIN 70/30 (300 UNITS/3 ML VIAL) SC SCH ×2 (08:13→20:54)
[2018-10-17 08:27] LABS: Prothrombin Time 13.3 SEC (12.0-14.7)
[2018-10-17] MEDS: Warfarin Sodium 5 MG TAB PO SCH (16:50)
--- NOTE | 2018-10-17 17:35 | PDOC.PN ---
- Subjective Encounter Start Date: 10/17/18 Encounter Start Time: 10:15 Subjective: pt up in bed no complains - Objective Resuscitation Status - Order Detail: 10/11/18 04:54 Resuscitation Status Routine Resuscitation Status: FULL: Full Resuscitation Vital Signs & Weight: Vital Signs (12 hours) Temp Pulse Resp BP BP Pulse Ox 10/17/18 08:10 129/71 10/17/18 07:50 98.1 F 84 20 129/71 95 10/17/18 06:20 68 16 96 Weight Weight 266 lb 9.6 oz I&O: 10/16/18 10/17/18 10/18/18 06:59 06:59 06:59 Intake Total 500 Balance 500 Result Diagrams: 10/14/18 04:55 10/14/18 04:55 Additional Labs: Accuchecks 10/17/18 10/17/18 10/17/18 16:06 11:20 04:28 POC Glucose 186 H 156 H 129 H 10/16/18 19:11 POC Glucose 265 H Phys Exam - Physical Examination Respiratory: no wheezing, no rales, no rhonchi, wheezing present, clear to auscultation bilateral Cardiovascular: RRR, no significant murmur, no rub, gallop, irregular Gastrointestinal: soft, non-tender, no distention, positive bowel sounds Musculoskeletal: no edema, pulses present, edema present Dx/Plan (1) Gout Code(s): M10.9 - GOUT, UNSPECIFIED Status: Acute Comment: Pt had colchicine yesterday, trial prednisone (2) PVD (peripheral vascular disease) Code(s): I73.9 - PERIPHERAL VASCULAR DISEASE, UNSPECIFIED Status: Acute Comment: continue Lovenox, consult CV surgery (3) Renal infarct Code(s): N28.0 - ISCHEMIA AND INFARCTION OF KIDNEY Status: Acute Comment: continue Lovenox (4) Splenic infarct Code(s): D73.5 - INFARCTION OF SPLEEN Status: Acute Comment: continue Lovenox (5) Diabetes mellitus type 2 in obese Code(s): E11.69 - TYPE 2 DIABETES MELLITUS WITH OTHER SPECIFIED COMPLICATION; E66.9 - OBESITY, UNSPECIFIED Status: Acute - Plan inr still subtheraputic, pt medically stable -: she is unfunded unable to provide lovonox * . Review of Systems - Review of Systems Respiratory: negative: Cough, Dry, Shortness of Breath, Hemoptysis, SOB with Excertion, Pleuritic Pain, Sputum, Wheezing Cardiovascular: negative: chest pain, palpitations, orthopnea, paroxysmal nocturnal dyspnea, edema, light headedness, other - Medications/Allergies Allergies/Adverse Reactions: Allergies Allergy/AdvReac Type Severity Reaction Status Date / Time Sulfa (Sulfonamide Allergy Verified 02/25/18 12:28 Antibiotics) Medications: Current Medications Acetaminophen (Tylenol) 650 mg PO Q4H PRN PRN Reason: Headache/Fever/Mild Pain (1-3) Last Admin: 10/11/18 09:51 Dose: 650 mg Acetaminophen/Codeine Phosphate (Tylenol #3) 1 tab PO Q4H PRN PRN Reason: Moderate Pain (4-6) Last Admin: 10/14/18 17:59 Dose: 1 tab Acetaminophen/Codeine Phosphate (Tylenol #3) 2 tab PO Q6H ADEN Last Admin: 10/17/18 16:50 Dose: 2 tab Albuterol Sulfate (Proventil Hfa) 2 puff INH Q4HR PRN PRN Reason: Wheezing Albuterol Sulfate (Ventolin) 2.5 mg NEB Q2H PRN PRN Reason: SOB &/or Wheezing Last Admin: 10/14/18 18:44 Dose: 2.5 mg Budesonide (Pulmicort Neb Solution) 0.25 mg NEB BID-RT [facility] Last Admin: 10/17/18 06:20 Dose: 0.25 mg Dextrose/Water (Dextrose 50%) 25 gm SLOW IVP PRN PRN PRN Reason: Hypoglycemia Enoxaparin Sodium (Lovenox) 120 mg SC 1600,0400 [facility] Last Admin: 10/17/18 16:49 Dose: 120 mg Fluticasone Propionate (Flonase Nasal [place]) 0 gm NASAL DAILY [facility] Last Admin: 10/17/18 08:13 Dose: 1 spr Glucagon (Glucagon) 1 mg IM PRN PRN PRN Reason: Hypoglycemia Dextrose/Water (D5w) 1,000 mls @ 0 mls/hr IV .Q0M PRN PRN Reason: Hypoglycemia Insulin Human Isoph/Insulin Regular (Humulin 70/30) 40 units SC BID [facility] Last Admin: 10/17/18 08:13 Dose: 40 units Insulin Human Lispro (Humalog) 0 units SC .MODERATE SLIDING SC PRN PRN Reason: Moderate Correctional Scale Last Admin: 10/16/18 20:03 Dose: 6 unit Lisinopril (Zestril) 10 mg PO DAILY [facility] Last Admin: 10/17/18 08:10 Dose: 10 mg Loratadine (Claritin) 10 mg PO DAILY [facility] Last Admin: 10/17/18 08:10 Dose: 10 mg Melatonin (Melatonin) 3 mg PO HS PRN PRN Reason: Insomnia Last Admin: 10/16/18 20:08 Dose: 3 mg Miscellaneous Medication (Pharmacy To Dose) 1 each PO .WARFARIN PRN PRN Reason: LABS Ondansetron HCl (Zofran Odt) 4 mg PO Q6H PRN PRN Reason: Nausea/Vomiting Last Admin: 10/13/18 22:37 Dose: 4 mg Ondansetron HCl (Zofran) 4 mg IVP Q6H PRN PRN Reason: Nausea/Vomiting Sodium Chloride (Flush - Normal Saline) 10 ml IVF Q12HR [facility] Last Admin: 10/17/18 08:13 Dose: 10 ml Sodium Chloride (Flush - Normal Saline) 10 ml IVF PRN PRN PRN Reason: Saline Flush Tramadol HCl (Ultram) 50 mg PO Q4H PRN PRN Reason: Pain Last Admin: 10/14/18 20:02 Dose: 50 mg Warfarin Sodium (Coumadin) 10 mg PO 1700 [facility] Last Admin: 10/17/18 16:50 Dose: 10 mg
[2018-10-17 19:09] LABS: Activated Protein C Resistance 2.9 ratio (.)
[2018-10-17] MEDS: Albuterol Sulfate 2.5 mg/3 ml Neb NEB PRN (19:11)
[2018-10-17] MEDS: Melatonin 3 MG TAB PO PRN (21:13)
[2018-10-18] MEDS: Acetaminophen/Codeine 30-300mg Tablet PO SCH ×4 (01:17→18:49)
[2018-10-18] MEDS: Enoxaparin Sodium 120 MG/0.8 ML SYRINGE SC SCH ×2 (05:18→16:46)
[2018-10-18 06:16] LABS: INR-International Normal Ratio 1.2; Prothrombin Time 15.2 SEC (12.0-14.7)
[2018-10-18] MEDS: Budesonide 0.25 MG/2 ML NEB NEB SCH ×2 (07:06→18:59)
[2018-10-18] MEDS: Fluticasone Propionate Nasal Spray 16 gm Bottle NASAL SCH (08:24)
[2018-10-18] MEDS: Loratadine 10 MG TAB PO SCH (08:26)
[2018-10-18] MEDS: Lisinopril 10 MG TAB PO SCH (08:27)
[2018-10-18] MEDS: HumuLIN 70/30 (300 UNITS/3 ML VIAL) SC SCH ×2 (10:00→21:17)
[2018-10-18] MEDS: HumaLOG 300 UNITS/3 ML VIAL SC PRN (12:26)
[2018-10-18] MEDS: Warfarin Sodium 5 MG TAB PO SCH (16:49)
[2018-10-18] MEDS: Albuterol Sulfate 2.5 mg/3 ml Neb NEB PRN (18:59)
--- NOTE | 2018-10-18 20:04 | PDOC.PN ---
- Subjective Encounter Start Date: 10/18/18 Encounter Start Time: 10:15 Subjective: pt up in bed no complains - Objective Resuscitation Status - Order Detail: 10/11/18 04:54 Resuscitation Status Routine Resuscitation Status: FULL: Full Resuscitation Vital Signs & Weight: Vital Signs (12 hours) Temp Pulse Resp BP BP Pulse Ox 10/18/18 19:24 97.8 F 79 20 130/88 96 10/18/18 18:59 76 16 95 10/18/18 16:00 98.3 F 76 18 105/76 93 L 10/18/18 12:08 98.3 F 78 20 112/82 95 10/18/18 08:41 96 10/18/18 08:27 107/74 10/18/18 08:19 98.3 F 78 18 107/74 94 L Weight Weight 266 lb 9.6 oz I&O: 10/17/18 10/18/18 10/19/18 06:59 06:59 06:59 Intake Total 720 2500 Balance 720 2500 Result Diagrams: 10/14/18 04:55 10/14/18 04:55 Additional Labs: Accuchecks 10/18/18 10/18/18 10/18/18 16:57 11:16 09:39 POC Glucose 85 261 H 285 H 10/18/18 10/17/18 04:23 19:01 POC Glucose 74 286 H Phys Exam - Physical Examination Neck: no nodes, no JVD, supple, full ROM Respiratory: no wheezing, no rales, no rhonchi, wheezing present, clear to auscultation bilateral Cardiovascular: RRR, no significant murmur, no rub, gallop, irregular Gastrointestinal: soft, non-tender, no distention, positive bowel sounds Dx/Plan (1) Gout Code(s): M10.9 - GOUT, UNSPECIFIED Status: Acute Comment: Pt had colchicine yesterday, trial prednisone (2) PVD (peripheral vascular disease) Code(s): I73.9 - PERIPHERAL VASCULAR DISEASE, UNSPECIFIED Status: Acute Comment: continue Lovenox, consult CV surgery (3) Renal infarct Code(s): N28.0 - ISCHEMIA AND INFARCTION OF KIDNEY Status: Acute Comment: continue Lovenox (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 Review of Systems - Review of Systems Respiratory: negative: Cough, Dry, Shortness of Breath, Hemoptysis, SOB with Excertion, Pleuritic Pain, Sputum, Wheezing Cardiovascular: negative: chest pain, palpitations, orthopnea, paroxysmal nocturnal dyspnea, edema, light headedness, other Gastrointestinal: negative: Nausea, Vomiting, Abdominal Pain, Diarrhea, Constipation, Melena, Hematochezia, Other - Medications/Allergies Allergies/Adverse Reactions: Allergies Allergy/AdvReac Type Severity Reaction Status Date / Time Sulfa (Sulfonamide Allergy Verified 02/25/18 12:28 Antibiotics) Medications: Current Medications Acetaminophen (Tylenol) 650 mg PO Q4H PRN PRN Reason: Headache/Fever/Mild Pain (1-3) Last Admin: 10/11/18 09:51 Dose: 650 mg Acetaminophen/Codeine Phosphate (Tylenol #3) 1 tab PO Q4H PRN PRN Reason: Moderate Pain (4-6) Last Admin: 10/14/18 17:59 Dose: 1 tab Acetaminophen/Codeine Phosphate (Tylenol #3) 2 tab PO Q6H ADEN Last Admin: 10/18/18 18:49 Dose: 2 tab Albuterol Sulfate (Proventil Hfa) 2 puff INH Q4HR PRN PRN Reason: Wheezing Albuterol Sulfate (Ventolin) 2.5 mg NEB Q2H PRN PRN Reason: SOB &/or Wheezing Last Admin: 10/18/18 18:59 Dose: 2.5 mg Budesonide (Pulmicort Neb Solution) 0.25 mg NEB BID-RT [facility] Last Admin: 10/18/18 18:59 Dose: 0.25 mg Dextrose/Water (Dextrose 50%) 25 gm SLOW IVP PRN PRN PRN Reason: Hypoglycemia Enoxaparin Sodium (Lovenox) 120 mg SC 1600,0400 [facility] Last Admin: 10/18/18 16:46 Dose: 120 mg Fluticasone Propionate (Flonase Nasal [place]) 0 gm NASAL DAILY [facility] Last Admin: 10/18/18 08:24 Dose: 1 spr Glucagon (Glucagon) 1 mg IM PRN PRN PRN Reason: Hypoglycemia Dextrose/Water (D5w) 1,000 mls @ 0 mls/hr IV .Q0M PRN PRN Reason: Hypoglycemia Insulin Human Isoph/Insulin Regular (Humulin 70/30) 40 units SC BID [facility] Last Admin: 10/18/18 10:00 Dose: 40 units Insulin Human Lispro (Humalog) 0 units SC .MODERATE SLIDING SC PRN PRN Reason: Moderate Correctional Scale Last Admin: 10/18/18 12:26 Dose: 6 unit Lisinopril (Zestril) 10 mg PO DAILY [facility] Last Admin: 10/18/18 08:27 Dose: 10 mg Loratadine (Claritin) 10 mg PO DAILY [facility] Last Admin: 10/18/18 08:26 Dose: 10 mg Melatonin (Melatonin) 3 mg PO HS PRN PRN Reason: Insomnia Last Admin: 10/17/18 21:13 Dose: 3 mg Miscellaneous Medication (Pharmacy To Dose) 1 each PO .WARFARIN PRN PRN Reason: LABS Ondansetron HCl (Zofran Odt) 4 mg PO Q6H PRN PRN Reason: Nausea/Vomiting Last Admin: 10/13/18 22:37 Dose: 4 mg Ondansetron HCl (Zofran) 4 mg IVP Q6H PRN PRN Reason: Nausea/Vomiting Sodium Chloride (Flush - Normal Saline) 10 ml IVF Q12HR [facility] Last Admin: 10/18/18 10:01 Dose: 10 ml Sodium Chloride (Flush - Normal Saline) 10 ml IVF PRN PRN PRN Reason: Saline Flush Tramadol HCl (Ultram) 50 mg PO Q4H PRN PRN Reason: Pain Last Admin: 10/14/18 20:02 Dose: 50 mg Warfarin Sodium (Coumadin) 10 mg PO 1700 [facility] Last Admin: 10/18/18 16:49 Dose: 10 mg
[2018-10-18] MEDS: Melatonin 3 MG TAB PO PRN (21:18)
[2018-10-19] MEDS: Acetaminophen/Codeine 30-300mg Tablet PO SCH ×4 (01:57→19:50)
[2018-10-19] MEDS: Enoxaparin Sodium 120 MG/0.8 ML SYRINGE SC SCH ×2 (04:59→16:02)
[2018-10-19 05:36] LABS: INR-International Normal Ratio 1.6; Prothrombin Time 19.5 SEC (12.0-14.7)
[2018-10-19] MEDS: Budesonide 0.25 MG/2 ML NEB NEB SCH ×2 (06:35→19:04)
[2018-10-19] MEDS: Loratadine 10 MG TAB PO SCH (08:07)
[2018-10-19] MEDS: Lisinopril 10 MG TAB PO SCH (08:07)
[2018-10-19] MEDS: Fluticasone Propionate Nasal Spray 16 gm Bottle NASAL SCH (08:08)
[2018-10-19] MEDS: HumuLIN 70/30 (300 UNITS/3 ML VIAL) SC SCH ×2 (08:11→19:51)
[2018-10-19 14:41] VITALS: BMI 44.6
[2018-10-19] MEDS: Warfarin Sodium 5 MG TAB PO SCH (16:03)
[2018-10-19] MEDS ORDERED: Warfarin Sodium 2.5 MG TAB PO SCH (17:00)
[2018-10-19] MEDS: Albuterol Sulfate 2.5 mg/3 ml Neb NEB PRN (19:02)
[2018-10-20] MEDS: Acetaminophen/Codeine 30-300mg Tablet PO SCH ×3 (01:07→12:16)
[2018-10-20] MEDS: Enoxaparin Sodium 120 MG/0.8 ML SYRINGE SC SCH (04:28)
[2018-10-20 05:16] LABS: INR-International Normal Ratio 2.3; Prothrombin Time 25.6 SEC (12.0-14.7)
[2018-10-20] MEDS: Budesonide 0.25 MG/2 ML NEB NEB SCH (07:04)
[2018-10-20 07:17] VITALS: TEMP 98.1
[2018-10-20] MEDS: Fluticasone Propionate Nasal Spray 16 gm Bottle NASAL SCH (08:41)
[2018-10-20] MEDS: HumuLIN 70/30 (300 UNITS/3 ML VIAL) SC SCH (08:41)
[2018-10-20] MEDS: Loratadine 10 MG TAB PO SCH (08:43)
[2018-10-20] MEDS: Lisinopril 10 MG TAB PO SCH (08:44)
[2018-10-20] MEDS: HumaLOG 300 UNITS/3 ML VIAL SC PRN (12:19)
[2018-10-20 14:53] VITALS: BP 138/94
== END 2018-10-20 14:56 | disposition home or self-care (01) | DRG 699 ==
LOC: ERS 23:47 → 2NO 10-11 05:11 → T4-B 10-13 21:55
PROVIDERS: ADMIT Hospitalist; ATTEND Hospitalist
DX: N28.0 Ischemia and infarction of kidney (principal); I74.09 Other arterial embolism and thrombosis of abdominal aorta; Z68.41 Body mass index [BMI] 40.0-44.9, adult; E87.1 Hypo-osmolality and hyponatremia; L03.90 Cellulitis, unspecified; E66.01 Morbid (severe) obesity due to excess calories; E78.5 Hyperlipidemia, unspecified; I10 Essential (primary) hypertension; F32.9 Major depressive disorder, single episode, unspecified; F41.9 Anxiety disorder, unspecified; F12.10 Cannabis abuse, uncomplicated; F17.210 Nicotine dependence, cigarettes, uncomplicated; D73.5 Infarction of spleen; E11.65 Type 2 diabetes mellitus with hyperglycemia; M10.9 Gout, unspecified; E11.51 Type 2 diabetes mellitus with diabetic peripheral angiopathy without gangrene; M79.7 Fibromyalgia; Z79.4 Long term (current) use of insulin; Z88.2 Allergy status to sulfonamides
CPT/HCPCS: 36415; 36416; 71045; 74177; 80048; 80053; 80061; 81240; 81241; 81270; 83090; 83880; 84484; 84550; 84703; 85025; 85240; 85250; 85300; 85303; 85305; 85307; 85379; 85598; 85610; 85613; 85730; 86038; 86146; 86147; 86225; 88184; 93005; 93306; 93923; 94640; 96365; 96372; 96375; 96376; J0690; J1650; J1815; J2060; J2270; J2405; J2765; J2930; J7512; J7611; J7620; J7626; Q0162; Q9966

== ENCOUNTER 2018-10-23 01:20 | Emergency (ER) | payer SELFPAY ==
[2018-10-23] MEDS ORDERED: Ondansetron ODT 4 MG TAB ONE (01:30)
[2018-10-23 01:48] LABS: #Basophils 0.1 thou/uL (0.0-0.2); #Eosinphils 0.1 thou/uL (0.0-0.7); #Lymphocytes 3.6 thou/uL (1.20-3.40); #Monocytes 0.7 thou/uL (0.11-0.59); %Basophils 0.7 % (0.0-1.0); %Eosinophils 0.9 % (0.0-10.0); %Lymphocytes 31.6 % (21.0-51.0); %Monocytes 6.4 % (0.0-10.0); %Neutrophils 60.4 % (42.0-75.0); Hemoglobin 14.8 g/dL (12.0-16.0); Mean Corpuscular HGB CONC 33.7 g/dL (32.0-36.0); Mean Corpuscular Hemoglobin 30.6 pg (27.0-31.0); Mean Corpuscular Volume 90.8 fL (78.0-98.0); Mean Platelet Volume 8.4 fL (7.4-10.4); Platelet Count 305 thou/uL (130-400); RBC Distribution Width 12.4 % (11.5-14.5); Red Blood Cell (RBC) Count 4.83 mill/uL (4.20-5.40); White Blood Cell (WBC) Count 11.5 thou/uL (4.8-10.8)
[2018-10-23] MEDS ORDERED: Morphine 10 MG/ML VIAL ONE (02:33)
[2018-10-23 02:48] LABS: ALT (SGPT) 26 U/L (8-55); AST (SGOT) 14 U/L (5-34); Albumin 3.7 g/dL (3.5-5.0); Alkaline Phosphatase 117 U/L (40-150); BUN (Urea Nitrogen) 10 mg/dL (7.0-18.7); Bilirubin, Total 0.3 mg/dL (0.2-1.2); Calc. Creatinine Clearance 0 mL/min (70-130); Calcium 9.4 mg/dL (7.8-10.44); Chloride 104 mmol/L (98-107); Estimated GFR-MDRD 60; Globulin 3.1 g/dL (2.4-3.5); Glucose 214 mg/dL (70-105); Lipase 25 U/L (8-78); Potassium 4.1 mmol/L (3.5-5.1); Protein, Total 6.8 g/dL (6.0-8.3); Sodium 134 mmol/L (136-145)
[2018-10-23 02:50] LABS: Anion Gap 12 mmol/L (10-20); Carbon Dioxide 20 mmol/L (22-29)
[2018-10-23 03:26] LABS: INR-International Normal Ratio 2.3; Prothrombin Time 25.4 SEC (12.0-14.7)
[2018-10-23 04:20] LABS: Bilirubin Negative (Negative); Blood, Urine Negative (Negative); Clarity CLEAR (Clear); Glucose, Urine (Dipstick) 100 mg/dL (Negative); Leukocyte Negative (Negative); Nitrite Negative (Negative); Protein, Urine (Dipstick) Negative (Neg-Trace); Specific Gravity, Urine 1.022 (1.002-1.036); Urobilinogen 0.2 mg/dL (0.2-1.0)
--- NOTE | 2018-10-23 07:49 | ULT ---
US Venous Doppler Rt Unilat History: Lower extremity edema, pain, and redness. Comparison: Ultrasound October 11, 2018 Findings: Real-time grayscale, color, and spectral analysis of the right lower extremity venous syste m was performed. The common femoral, femoral, proximal portions greater saphenous and deep femoral veins as well as the popliteal posterior tibial veins were interrogated. Normal flow, augmentation, and compression. Impression: No deep venous thrombosis.
--- NOTE | 2018-10-23 08:45 | CT ---
PRELIMINARY REPORT/[facility]/EMERGENCY AFTER HOURS PROCEDURE: EXAM: CT Abdomen and Pelvis With Contrast EXAM DATE/TIME: 10/23/2018 3:32 AM CLINICAL HISTORY: 47 years old, female; Acute; Patient HX: 47f presenting with sudden one of upper abdominal pain and nausea, vomiting at 0100 today. She reports she was recently admitted for splenic infarct. She also reports flushing that started today. Reports changes in color of right lower extremity. PT repor ts she is taking coumadin daily TECHNIQUE: Imaging protocol: Axial computed tomography images of the abdomen and pelvis with intravenous contrast. Coronal reformatted images were created and reviewed. COMPARISON: CT Abdomen Pelvis W Con 10/11/2018 1:39 AM FINDINGS: ABDOMEN: Liver: Normal. No mass. Gallbladder and bile ducts: Prior cholecystectomy. No biliary ductal dilatation. Pancreas: Normal. No ductal dilation. Spleen: 4.6 cm posterior splenic infarct. Adrenals: Normal. No mass. Kidneys and ureters: Normal. No hydronephrosis. Stomach and bowel: No intestinal obstruction. Mild inflammatory thickening of the wall of a few loops of ileum, consistent with enteritis. Appendix: Normal appendix. PELVIS: Bladder: Unremarkable as visualized. Reproductive: Unremarkable as visualized. ABDOMEN and PELVIS: Intraperitoneal space: Trace volume ascites in the pelvis. No pneumoperitoneum or abscess. Bones/joints: No acute fracture. No dislocation. Soft tissues: Large fat containing umbilical hernia. Vasculature: No pneumatosis or portal/mesenteric venous gas. SMV and SMA are patent as far as can be traced. Lymph nodes: Normal. No enlarged lymph nodes. IMPRESSION: 1. Enteritis. This may be a result of infection, inflammatory bowel disease, or ischemia. No specific ancillary findings of bowel ischemia. 2. 4.6 cm posterior splenic infarct. 3. Trace volume ascites in the pelvis. Thank you for allowing us to participate in the care of your patient. Dictated and Authenticated by: Nain Del Angel MD 10/23/2018 3:51 AM Central Time ([place] & [place]) FINAL REPORT EMERGENT AFTER HOURS CT ABDOMEN AND PELVIS: IMPRESSION: Agree with the preliminary interpretation given by [facility]. In addition to the described [facility] findings, t here are foci of increased attenuation seen within the subcutaneous adipose layer of the anterior abd ominal wall, presumably reflecting sites of medication administration. POS: OFF
[2018-10-23] MEDS ORDERED: ISOVUE-370 76%-LOCM 1 ML ONE (09:50)
== END 2018-10-23 05:56 | disposition home or self-care (01) ==
LOC: ERS 01:20
DX: K52.9 Noninfective gastroenteritis and colitis, unspecified (principal); E11.9 Type 2 diabetes mellitus without complications; E78.5 Hyperlipidemia, unspecified; I11.0 Hypertensive heart disease with heart failure; I10 Essential (primary) hypertension; Z79.899 Other long term (current) drug therapy; Z79.01 Long term (current) use of anticoagulants
CPT/HCPCS: 36415; 74177; 80053; 81003; 83690; 85025; 85610; 85730; 93005; 96361; 96374; J2270; Q0162; Q9966

== ENCOUNTER 2018-12-11 13:12 | Outpatient (CLI) | payer MEDICAID ==
--- NOTE | 2018-12-12 14:28 | MMO ---
Bilateral MAMMO Bilat Screen [facility]. CLINICAL HISTORY: Patient is 48 years old and is seen for screening. The patient has the following family history of breast cancer: great aunt. The patient has no personal history of cancer. VIEWS: The views performed were: bilateral craniocaudal and bilateral mediolateral oblique. This study has been interpreted with the assistance of computer-aided detection. MAMMOGRAM FINDINGS: The breasts are almost entirely fat. 5 mm round nodule in the upper inner quadrant of the left breast. Right breast: There are no suspicious masses, calcifications or areas of architectural distortion. In the right breast, there are no suspicious masses, calcifications or areas of architectural distortion. IMPRESSION: FINDING IN THE LEFT BREAST REQUIRES ADDITIONAL EVALUATION. ADDITIONAL PROJECTIONS (LEFT CRANIOCAUDAL SPOT COMPRESSION; LEFT MEDIOLATERAL OBLIQUE SPOT COMPRESSION; AND LEFT MEDIOLATERAL) ARE RECOMMENDED. ULTRASOUND IF LESION PERSISTS IN THE LEFT BREAST. ACR BI-RADS Category 0 - Incomplete: Need additional imaging evaluation. [facility] will notify the patient of the need for additional imaging services. MAMMOGRAPHY NOTE: 1. A negative mammogram report should not delay a biopsy if a dominant of clinically suspicious mass is present. 2. Approximately 10% to 15% of breast cancers are not detected by mammography. 3. Adenosis and dense breasts may obscure an underlying neoplasm. Reported by: KAYA KWON MD Electonically Signed: [id number]
== END 2018-12-11 13:13 | disposition home or self-care (01) ==
LOC: SCSMAMMO 13:12
PROVIDERS: ATTEND Obstetrics & Gynecology
DX: Z12.31 Encounter for screening mammogram for malignant neoplasm of breast (principal); Z80.3 Family history of malignant neoplasm of breast
CPT/HCPCS: 77067

== ENCOUNTER 2019-01-22 11:38 | Emergency (ER) | payer MEDICAID | END 2019-01-22 14:37 | disposition home or self-care (01) | LOC: ERS 11:38 | DX: S46.912A Strain of unspecified muscle, fascia and tendon at shoulder and upper arm level, left arm, initial encounter (principal); E11.9 Type 2 diabetes mellitus without complications; E78.5 Hyperlipidemia, unspecified; I10 Essential (primary) hypertension; J45.909 Unspecified asthma, uncomplicated; F41.9 Anxiety disorder, unspecified; F32.9 Major depressive disorder, single episode, unspecified; Z87.891 Personal history of nicotine dependence; Z79.899 Other long term (current) drug therapy; Z79.01 Long term (current) use of anticoagulants; Z79.4 Long term (current) use of insulin; X50.9XXA Other and unspecified overexertion or strenuous movements or postures, initial encounter | CPT/HCPCS: 99281 ==

== ENCOUNTER 2020-07-28 08:29 | Outpatient (CLI) | payer OTHER | END 2020-07-28 08:30 | disposition home or self-care (01) | LOC: BICMAMMO 08:29 | PROVIDERS: ATTEND Hospitalist | DX: R92.8 Other abnormal and inconclusive findings on diagnostic imaging of breast (principal) | CPT/HCPCS: 77066; G0279 ==

== ENCOUNTER 2022-05-12 08:50 | Outpatient (CLI) | payer OTHER | END 2022-05-12 08:51 | disposition home or self-care (01) | LOC: DTY/OP 08:50 | PROVIDERS: ATTEND Specialist | DX: E66.01 Morbid (severe) obesity due to excess calories (principal) | CPT/HCPCS: 97802 ==

== ENCOUNTER 2022-06-11 13:10 | Outpatient (CLI) | payer OTHER | END 2022-06-11 13:11 | disposition home or self-care (01) | LOC: DTY/OP 13:10 | PROVIDERS: ATTEND Specialist | DX: E66.01 Morbid (severe) obesity due to excess calories (principal) | CPT/HCPCS: 97802 ==

== ENCOUNTER 2022-07-12 13:18 | Outpatient (CLI) | payer OTHER | END 2022-07-12 13:19 | disposition home or self-care (01) | LOC: DTY/OP 13:18 | PROVIDERS: ATTEND Specialist | DX: E66.01 Morbid (severe) obesity due to excess calories (principal) | CPT/HCPCS: 97802 ==

== ENCOUNTER 2022-07-22 09:14 | Emergency (ER) | payer OTHER ==
[2022-07-22] MEDS ORDERED: HYDROcodone/Acetaminophen 5/325 mg Tablet ONE (10:36)
[2022-07-22] MEDS ORDERED: Cyclobenzaprine 10 MG TAB ONE (10:37)
[2022-07-22] MEDS ORDERED: Ondansetron ODT 4 MG TAB ONE (10:37)
== END 2022-07-22 11:54 | disposition home or self-care (01) ==
LOC: ERS 09:14
DX: M25.462 Effusion, left knee (principal); E11.9 Type 2 diabetes mellitus without complications; E78.5 Hyperlipidemia, unspecified; I10 Essential (primary) hypertension; Z87.891 Personal history of nicotine dependence; Z79.84 Long term (current) use of oral hypoglycemic drugs; Z79.01 Long term (current) use of anticoagulants
CPT/HCPCS: 72170; Q0162

== ENCOUNTER 2022-08-10 14:45 | Outpatient (CLI) | payer OTHER | END 2022-08-10 14:46 | disposition home or self-care (01) | LOC: DTY/OP 14:45 | PROVIDERS: ATTEND Specialist | DX: E66.01 Morbid (severe) obesity due to excess calories (principal) | CPT/HCPCS: 97802 ==

== ENCOUNTER 2022-09-07 14:30 | Outpatient (CLI) | payer OTHER | END 2022-09-07 14:31 | disposition home or self-care (01) | LOC: DTY/OP 14:30 | PROVIDERS: ATTEND Specialist | DX: E66.01 Morbid (severe) obesity due to excess calories (principal) | CPT/HCPCS: 97802 ==

== ENCOUNTER 2023-04-17 20:58 | Emergency (ER) | payer OTHER ==
[2023-04-17] MEDS ORDERED: Orphenadrine Citrate 60 MG/2 ML VIAL ONE (22:18)
[2023-04-17] MEDS ORDERED: HYDROcodone/Acetaminophen 10/325 mg Tablet ONE (22:18)
== END 2023-04-17 22:55 | disposition home or self-care (01) ==
LOC: ERS 20:58
DX: M54.50 Low back pain, unspecified (principal); I10 Essential (primary) hypertension; E11.9 Type 2 diabetes mellitus without complications; F17.210 Nicotine dependence, cigarettes, uncomplicated; Z79.899 Other long term (current) drug therapy; Z79.84 Long term (current) use of oral hypoglycemic drugs; Z86.718 Personal history of other venous thrombosis and embolism; Z79.01 Long term (current) use of anticoagulants
CPT/HCPCS: 72100; 96372; J2360

== ENCOUNTER 2024-01-19 15:41 | Observation (INO) | payer MEDICAID, OTHER ==
[~2024-01-19 15:41] MED LIST: Iopamidol-370 76% 500 ML MDV (1 ML CHARGE) ONE
[2024-01-19] MEDS ORDERED: Acetaminophen 500 MG TAB ONE (18:14)
[2024-01-19] MEDS ORDERED: Ondansetron PF 4 MG/2 ML Vial ONE (18:14)
[2024-01-19 18:37] LABS: #Basophils 0.05 10x3/uL (0.0-0.2); #Eosinphils Less than 0.03 10x3/uL (0.0-0.7); %Basophils 0.3 % (0.0-1.0); %Eosinophils 0.1 % (0.0-10.0); %Lymphocytes 9.3 % (21.0-51.0); %Monocytes 7.3 % (0.0-10.0); %Neutrophils 82.2 % (42.0-75.0); Hematocrit 35.7 % (36.0-47.0); Hemoglobin 11.9 g/dL (12.0-16.0); Mean Corpuscular HGB CONC 33.3 g/dL (32.0-36.0); Mean Corpuscular Hemoglobin 28.4 pg (27.0-31.0); Mean Corpuscular Volume 85.2 fL (78.0-98.0); Mean Platelet Volume 10.6 fL (7.4-10.4); Platelet Count 347 10x3/uL (130-400); RBC Distribution Width 15.5 % (11.5-14.5); Red Blood Cell (RBC) Count 4.19 mill/uL (4.20-5.40)
[2024-01-19 18:43] LABS: Bacteria/HPF None Seen HPF (None Seen); Bilirubin Negative (Negative); Blood, Urine Trace (Negative); CAUTI Indications for Culture Dysuria,urgency,freq; Clarity Clear (Clear); Glucose, Urine (Dipstick) >=1000 mg/dL (Negative); Ketone, Urine Negative (Negative); Leukocyte Negative Leu/uL (Negative); Nitrite Negative (Negative); Protein, Urine (Dipstick) Negative (Neg-Trace); RBC/HPF 0-3 HPF (0-3); Specific Gravity, Urine 1.007 (1.002-1.036); Squamous Epithelial 0-3 HPF (0-3); Urobilinogen Normal mg/dL (Less than 2); WBC/HPF 0-3 HPF (0-3)
[2024-01-19 18:47] LABS: Urine Culture Reflex No No
[2024-01-19 18:50] LABS: INR-International Normal Ratio 1.1; Prothrombin Time 14.1 sec (12.0-14.7)
[2024-01-19 18:51] LABS: PTT 42.8 sec (22.9-36.1)
[2024-01-19 18:55] LABS: ALT (SGPT) 8 U/L (8-55); AST (SGOT) 10 U/L (5-34); Albumin 3.2 g/dL (3.5-5.0); Alkaline Phosphatase 122 U/L (40-110); Anion Gap 16 mmol/L (10-20); BUN (Urea Nitrogen) 13 mg/dL (9.8-20.1); Bilirubin, Total 0.6 mg/dL (0.2-1.2); Calc. Creatinine Clearance 0 mL/min (70-130); Calcium 9.4 mg/dL (7.8-10.44); Carbon Dioxide 29 mmol/L (22-29); Chloride 92 mmol/L (98-107); Estimated GFR 62; Globulin 3.8 g/dL (2.4-3.5); Glucose 181 mg/dL (70-105); Magnesium 2.1 mg/dL (1.6-2.6); Potassium 2.9 mmol/L (3.5-5.1); Sodium 134 mmol/L (136-145)
[2024-01-19 19:00] LABS: Troponin I Less than 0.010 ng/mL (< 0.028)
[2024-01-19] MEDS ORDERED: Potassium Chloride 20 MEQ TAB ONE (19:52)
[2024-01-19] MEDS ORDERED: cefTRIAXone (ROCEPHIN) 2 GM VIAL ONE (19:52)
[2024-01-19] MEDS ORDERED: Sodium Chloride 0.9% 100 ML ONE (19:52)
[2024-01-19] MEDS ORDERED: Azithromycin 500 MG VIAL ONE (20:46)
[2024-01-19] MEDS ORDERED: Dextrose 5% in Water 1,000 ML IV PRN (20:47)
[2024-01-19] MEDS ORDERED: Glucagon 1 MG/ML KIT IM PRN (20:47)
[2024-01-19] MEDS ORDERED: Insulin Lispro 100 UNIT/ML 10 ML VIAL SC PRN (20:47)
[2024-01-19] MEDS ORDERED: Dextrose 50% Abboject 50 ML SYRINGE SLOW IVP PRN (20:47)
[2024-01-19] MEDS ORDERED: Ipratropium/Albuterol 3 ML NEB NEB PRN (21:02)
[2024-01-19] MEDS ORDERED: Ipratropium/Albuterol 3 ML NEB NEB SCH ×2 (21:15→22:30)
[2024-01-19] MEDS ORDERED: Ipratropium/Albuterol 3 ML NEB IPPB SCH (21:15)
[2024-01-19 21:22] VITALS: BMI 38.7
[2024-01-19] MEDS ORDERED: Albuterol 2.5 MG (3 mL) NEB NEB PRN (21:46)
[2024-01-19] MEDS ORDERED: Lorazepam 1 MG TAB PO PRN (21:46)
[2024-01-19] MEDS ORDERED: Albuterol 200 PUFF (6.7GM INHALER) INH PRN (21:46)
[2024-01-19] MEDS ORDERED: Nicotine 14 MG PATCH TD SCH (22:00)
[2024-01-19] MEDS: Lactated Ringer's 1,000 ML IV SCH (22:05)
[2024-01-19] MEDS: metFORMIN 500 MG TAB PO SCH (23:30)
[2024-01-19] MEDS: predniSONE 20 MG TAB PO SCH (23:46)
[2024-01-19] MEDS: Apixaban 5 MG TAB PO SCH (23:47)
[2024-01-19] MEDS: Atorvastatin Calcium 40 MG TAB PO SCH (23:47)
[2024-01-19] MEDS: Morphine 2 MG/ML VIAL SLOW IVP SCH (23:47)
[2024-01-19] MEDS: Losartan 25 MG TAB PO SCH (23:47)
[2024-01-19] MEDS: Ipratropium/Albuterol 3 ML NEB IPPB SCH (23:51)
[2024-01-20] MEDS: Ipratropium/Albuterol 3 ML NEB IPPB SCH (00:06)
[2024-01-20] MEDS: Cyclobenzaprine 10 MG TAB PO SCH (00:07)
[2024-01-20] MEDS ORDERED: Ipratropium/Albuterol 3 ML NEB IPPB SCH (01:00)
[2024-01-20 04:16] LABS: #Basophils 0.04 10x3/uL (0.0-0.2); #Eosinphils Less than 0.03 10x3/uL (0.0-0.7); %Basophils 0.2 % (0.0-1.0); %Eosinophils 0.1 % (0.0-10.0); %Lymphocytes 4.6 % (21.0-51.0); %Monocytes 7.1 % (0.0-10.0); %Neutrophils 87.4 % (42.0-75.0); Hematocrit 33.7 % (36.0-47.0); Hemoglobin 11.1 g/dL (12.0-16.0); Mean Corpuscular HGB CONC 32.9 g/dL (32.0-36.0); Mean Corpuscular Hemoglobin 27.8 pg (27.0-31.0); Mean Corpuscular Volume 84.5 fL (78.0-98.0); Platelet Count 303 10x3/uL (130-400); RBC Distribution Width 15.5 % (11.5-14.5); Red Blood Cell (RBC) Count 3.99 mill/uL (4.20-5.40)
[2024-01-20 04:41] LABS: ALT (SGPT) 7 U/L (8-55); AST (SGOT) 10 U/L (5-34); Albumin 2.7 g/dL (3.5-5.0); Alkaline Phosphatase 108 U/L (40-110); Anion Gap 14 mmol/L (10-20); BUN (Urea Nitrogen) 13 mg/dL (9.8-20.1); Bilirubin, Total 0.4 mg/dL (0.2-1.2); Calc. Creatinine Clearance 96 mL/min (70-130); Carbon Dioxide 26 mmol/L (22-29); Chloride 97 mmol/L (98-107); Estimated GFR 60; Globulin 3.4 g/dL (2.4-3.5); Glucose 237 mg/dL (70-105); Magnesium 2.1 mg/dL (1.6-2.6); Potassium 3.4 mmol/L (3.5-5.1); Protein, Total 6.1 g/dL (6.0-8.3); Sodium 134 mmol/L (136-145)
[2024-01-20] MEDS: Mometasone 200 MCG/Formoterol 5 MCG 120 PUFF INHALER INH SCH (07:39)
[2024-01-20] MEDS ORDERED: metFORMIN 500 MG TAB PO SCH (08:00)
[2024-01-20] MEDS: Guaifenesin DM 100-10/5 ML UDCUP PO PRN (08:39)
[2024-01-20] MEDS: lamoTRIgine 100 MG TAB PO SCH (08:40)
[2024-01-20] MEDS: Pantoprazole DR 40 MG TAB PO SCH (08:40)
[2024-01-20] MEDS: Venlafaxine HCl XR 75 MG CAP PO SCH (08:40)
[2024-01-20] MEDS: Potassium Chloride 20 MEQ TAB PO SCH (08:40)
[2024-01-20] MEDS: predniSONE 20 MG TAB PO SCH (08:40)
[2024-01-20] MEDS: Cyclobenzaprine 10 MG TAB PO PRN (08:40)
[2024-01-20] MEDS: Hydrochlorothiazide 25 MG TAB PO SCH (08:40)
[2024-01-20] MEDS: Empagliflozin 10 MG TAB PO SCH (08:41)
[2024-01-20] MEDS: Insulin Glargine 30 UNITS/0.3 ML VIAL SC SCH (08:41)
[2024-01-20] MEDS: Apixaban 5 MG TAB PO SCH (08:41)
[2024-01-20 08:42] LABS: Strep pneumo Urine Ag NEGATIVE (NEGATIVE)
[2024-01-20 08:44] VITALS: BP 105/61
[2024-01-20] MEDS ORDERED: Atorvastatin Calcium 40 MG TAB PO SCH ×2 (09:00→21:00)
[2024-01-20 10:45] VITALS: BMI 38.6
[2024-01-20 12:24] VITALS: TEMP 98.1
[2024-01-20] MEDS: Insulin Lispro 100 UNIT/ML 10 ML VIAL SC PRN (13:36)
[2024-01-20] MEDS ORDERED: cefTRIAXone\\ROCEPHIN 1 GM in Sodium Chloride 0.9% 100 ML IVPB SCH (20:00)
[2024-01-20] MEDS ORDERED: Losartan 25 MG TAB PO SCH (21:00)
[2024-01-20] MEDS ORDERED: Azithromycin 500 MG in Sodium Chloride 0.9% 250 ML 250 ML IVPB SCH (21:00)
[2024-01-20] MEDS ORDERED: Nicotine 14 MG PATCH TD SCH (22:00)
== END 2024-01-20 14:16 | disposition home or self-care (01) ==
LOC: ERS 15:41 → 2SW 20:16
PROVIDERS: ADMIT Student in an Organized Health Care Education/Training Program; ATTEND Student in an Organized Health Care Education/Training Program
DX: J45.901 Unspecified asthma with (acute) exacerbation (principal); J98.4 Other disorders of lung; J18.9 Pneumonia, unspecified organism; F32.A Depression, unspecified; E87.6 Hypokalemia; E86.0 Dehydration; R74.8 Abnormal levels of other serum enzymes; N17.9 Acute kidney failure, unspecified; D72.819 Decreased white blood cell count, unspecified; I45.81 Long QT syndrome; Z88.2 Allergy status to sulfonamides; E11.9 Type 2 diabetes mellitus without complications; K21.00 Gastro-esophageal reflux disease with esophagitis, without bleeding; M17.9 Osteoarthritis of knee, unspecified; R59.9 Enlarged lymph nodes, unspecified; Z79.51 Long term (current) use of inhaled steroids; Z79.01 Long term (current) use of anticoagulants; Z79.4 Long term (current) use of insulin; Z79.899 Other long term (current) drug therapy; Z98.891 History of uterine scar from previous surgery; F17.200 Nicotine dependence, unspecified, uncomplicated
CPT/HCPCS: 36415; 36416; 71045; 71275; 74174; 80053; 81001; 83605; 83690; 83735; 83880; 84145; 84443; 84484; 85025; 85610; 85730; 87040; 87449; 93005; 96365; 96374; 96375; G0378; J0456; J0696; J1815; J2272; J2405; J7120; J7512; J7620; Q9967

== ENCOUNTER 2024-05-14 02:00 | Emergency (ER) | payer MEDICAID | END 2024-05-14 04:07 | disposition home or self-care (01) | LOC: ERS 02:00 | DX: M54.9 Dorsalgia, unspecified (principal); E11.9 Type 2 diabetes mellitus without complications; I10 Essential (primary) hypertension; Z87.891 Personal history of nicotine dependence | CPT/HCPCS: 71045 ==